=== PATIENT | female | born 1965 | race Hispanic/Latino ===

== ENCOUNTER 2020-04-10 12:17 | Emergency (ER) | payer OTHER, SELFPAY ==
--- OUTSIDE RECORDS SUMMARY | 2020-04-10 12:19 | XMS REPORT | Continuity of Care Document ---
:1965 Author Organization [facility] t Address [address] [place] [address] Care Team Providers Name Role Phone Ibeth Cavazos Attending Clinician Problems This patient has no known problems. Allergies, Adverse Reactions, Alerts This patient has no known allergies or adverse reactions. Medications This patient has no known medications. Procedures This patient has no known procedures. Encounters Start End Encounter Admission Attending Care Care Encounter Source Date/Time Date/Time Type Type Clinicians Facility Department ID 2019-12-29 2019-12-29 [facility] [id number] 06:29:04 23:59:00 Encounter Tamara Cristina SPECIALTY [id number] [facility] [id number] CENTER AT [id number] [facility] [address] [facility] 2019-11-30 2019-11-30 Office [facility] [id number] 15:59:53 16:57:30 Visit Tamara Cristina [employer]MP[employer] [id number] [facility] [id number] MATERNAL [id number] & CHILD [address] [place] [address] Results This patient has no known results.
[2020-04-10] MEDS ORDERED: dexAMETHasone 10 MG/ML VIAL ONE (13:12)
[2020-04-10] MEDS ORDERED: ACETAMINOPHEN 500 MG TAB ONE (13:12)
[2020-04-10] MEDS ORDERED: KETOROLAC 30 MG/ML INJ ONE (13:12)
--- NOTE | 2020-04-10 14:12 | RAD REPORT ---
EXAM DESCRIPTION: RAD - Chest Single View - 04/10/2020 1:58 pm CLINICAL HISTORY: Cough;Fever COMPARISON: Two-view chest April 2011 TECHNIQUE: AP portable chest image was obtained 04/10/2020 1:58 pm . FINDINGS: Lung volumes are low which accentuates heart, vasculature and lung markings. This could ma sk early edema or infiltrate. Heart and vasculature are normal. No measurable pleural effusion and no pneumothorax. No acute bony abnormality seen. No acute aortic findings suspected. IMPRESSION: No focal mass or consolidation. Shallow inspiration exam with prominent interstitial opacification. Early edema or infiltrate could b e masked.
--- NOTE | 2020-04-10 14:58 | ER ---
Nurse's Notes [facility] Name: Keisha Serna Age: 54 yrs Sex: Female : 1965 Arrival Date: 04/10/2020 Time: : Bed 15 Private MD: Diagnosis: Acute upper respiratory infection, unspecified Presentation: 04/10 12:36 Chief complaint: Patient states: Fever, sore throat, slight cough, SOB, fatigue, and ll1 body aches since 04/04. Family members have similar symptoms. Coronavirus screen: Client denies travel out of the [place] in the last 14 days. congestion, cough unrelated to allergies, difficulty breathing, fatigue, fever, nausea, shortness of breath, sore throat, vomiting. Client presents with at least one sign or symptom that may indicate coronavirus-19. Standard/surgical mask placed on the client. Ebola Screen: Patient denies travel to an Ebola-affected area in the 21 days before illness onset. Initial Sepsis Screen: Does the patient meet any 2 criteria? HR > 90 bpm. No. Patient's initial sepsis screen is negative. Does the patient have a suspected source of infection? Yes: Productive cough/pneumonia. Risk Assessment: Do you want to hurt yourself or someone else? Patient reports no desire to harm self or others. Onset of symptoms was April 04, 2020. 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 - Social history:: Smoking status: Patient denies any tobacco usage or history of. Screenin:23 Abuse screen: Denies threats or abuse. Denies injuries from another. Nutritional jl7 screening: No deficits noted. Tuberculosis screening: No symptoms or risk factors identified. Fall Risk None identified. Assessment: 13:00 General: Appears in no apparent distress. uncomfortable, Behavior is calm, cooperative, jl7 appropriate for age. Pain: Complains of pain in sore throat, VARNER Pain currently is 5 out of 10 on a pain scale. Neuro: Level of Consciousness is awake, alert, obeys commands, Oriented to person, place, time, situation, Moves all extremities. Full function Gait is steady, Speech is normal. Cardiovascular: Patient's skin is warm and dry. Respiratory: Airway is patent Respiratory effort is even, unlabored, Respiratory pattern is regular, symmetrical. Derm: Skin is pink, warm \T\ dry. 14:00 Reassessment: Patient appears in no apparent distress at this time. Patient and/or jl7 family updated on plan of care and expected duration. Pain level reassessed. Patient is alert, oriented x 3, equal unlabored respirations, skin warm/dry/pink. reports decreased pain, rated 3/10 at this time. Vital Signs: 12:36 BP 129 / 95; Pulse 93; Resp 18; Temp 101.1; Pulse Ox 97% on R/A; Weight 89.36 kg; ll1 Height 5 ft. 2 in. (157.48 cm); Pain 5/10; 14:23 BP 105 / 63; Pulse 80; Resp 19; Pulse Ox 98% ; Pain 3/10; jl7 14:25 Temp 99.8(O); jl7 15:18 BP 116 / 74; Pulse 75; Resp 15; Pulse Ox 97% ; jl7 12:36 Body Mass Index 36.03 (89.36 kg, 157.48 cm) ll1 ED Course: 12:22 Patient arrived in ED. rg4 12:35 Arm band placed on Patient placed in an exam room, on a stretcher. ll1 12:38 Triage completed. ll1 12:38 Brando Haile NP is PHCP. pm1 12:38 Lorne Jolly MD is Attending Physician. pm1 12:50 Noman Martin RN is Primary Nurse. jl7 13:30 COVID swab sent to lab. Flu and/or RSV swab sent to lab. Strep swab sent to lab. jl7 13:58 CXR XRAY In Process Unspecified. EDMS 14:23 Patient has correct armband on for positive identification. Placed in gown. Bed in low jl7 position. Call light in reach. Side rails up X 1. Pulse ox on. NIBP on. 15:18 No provider procedures requiring assistance completed. Patient did not have IV access jl7 during this emergency room visit. Administered Medications: 13:00 Drug: Tylenol 1000 mg Route: PO; jl7 14:24 Follow up: Response: No adverse reaction; Temperature is decreased jl7 13:05 Drug: TORadol 60 mg Route: IM; Site: right ventrogluteal; jl7 14:24 Follow up: Response: No adverse reaction; Pain is decreased jl7 13:07 Drug: Decadron 10 mg Route: IM; Site: right deltoid; jl7 14:25 Follow up: Response: No adverse reaction jl7 Outcome: 14:58 Discharge ordered by MD. pm1 15:18 Discharged to home ambulatory. jl7 15:18 Condition: stable 15:18 Discharge instructions given to patient, Instructed on discharge instructions, follow up and referral plans. medication usage, Demonstrated understanding of instructions, follow-up care, medications, Prescriptions given X 4. 15:19 Patient left the ED. jl7 Addendum: 04/12/2020 09:20 Addendum: COVID-19 Result: Positive result giiven to ED physician to notify pt. d m5 Physician: Ranjit Ross MD Physician attempted to contact pt. Physician left voice mail for pt to call the ED back. Signatures: Dispatcher [employer] EDMS Leah Mustafa RN RN dm5 Brando Haile NP MARINE MECHANIC pm1 Bonny Fall4 Noman Martin RN RN jl7 Alexis Ramos RN RN ll1
--- NOTE | 2020-04-10 14:58 | EDPHYS ---
Physician Documentation [facility] Name: Keisha Serna Age: 54 yrs Sex: Female : 1965 Arrival Date: 04/10/2020 Time: 12:22 Bed 15 Private MD: ED Physician Lorne Jolly HPI: 04/10 12:50 This 54 yrs old Female presents to ER via Ambulatory with complaints of Fever. pm1 12:50 The patient reports fever, not measured (subjective). Onset: The symptoms/episode pm1 began/occurred onset 7 days ago. Modifying factors: The patient has had contact with sick mother and father have concerns of COVID-19. Her mother has lass of taste and smell. The patient is having a cough, sore throat, subjective fever and chills, and chest pain with coughing and deep breathing. Associated signs and symptoms: Pertinent positives: chest pain, cough, diarrhea, sore throat, Pertinent negatives: abdominal pain, earache, headache, nausea, skin rash, shortness of breath, vomiting. Severity of symptoms: in the emergency department the symptoms are worse. The patient has not experienced similar symptoms in the past. The patient has not recently seen a physician, attempted to get covid screening outpatient but was unable to complete the forms online. LEGAL JOB TITLES: 15:19 LMP N/A - Post-menopause jl7 Historical: - Allergies: 12:36 No Known Allergies; ll1 - PMHx: 12:36 Hypertension; ll1 - PSHx: 12:36 None; ll1 - Immunization history:: Flu vaccine is not up to date. - Social history:: Smoking status: Patient denies any tobacco usage or history of. ROS: 12:50 Eyes: Negative for injury, pain, redness, and discharge, ENT: Negative for injury, pm1 pain, and discharge, Neck: Negative for injury, pain, and swelling. 12:50 Back: Negative for injury and pain, MS/Extremity: Negative for injury and deformity, Skin: Negative for injury, rash, and discoloration, Neuro: Negative for headache, weakness, numbness, tingling, and seizure. 12:50 Constitutional: Positive for chills, fever, Negative for poor PO intake. 12:50 Cardiovascular: Positive for chest pain, with cough, Negative for edema. 12:50 Respiratory: Positive for cough, Negative for shortness of breath. 12:50 Abdomen/GI: Positive for diarrhea, x2 for two days, Negative for abdominal pain, vomiting, abdominal cramps. Exam: 12:50 Constitutional: This is a well developed, well nourished patient who is awake, alert, pm1 and in no acute distress. Head/Face: Normocephalic, atraumatic. 12:50 Back: No spinal tenderness. No costovertebral tenderness. Full range of motion. Skin: Warm, dry with normal turgor. Normal color with no rashes, no lesions, and no evidence of cellulitis. MS/ Extremity: Pulses equal, no cyanosis. Neurovascular intact. Full, normal range of motion. 12:50 Cardiovascular: Exam negative for acute changes, Rate: normal, Rhythm: regular, Pulses: no pulse deficits are appreciated, Edema: is not appreciated. 12:50 Respiratory: Exam negative for acute changes, respiratory distress, shortness of breath, the patient does not display signs of respiratory distress. 12:50 Abdomen/GI: Inspection: abdomen appears normal, Palpation: abdomen is soft and non-tender, in all quadrants. 12:50 Neuro: Exam negative for acute changes, Orientation: is normal, Mentation: is normal, Motor: is normal, moves all fours. Vital Signs: 12:36 BP 129 / 95; Pulse 93; Resp 18; Temp 101.1; Pulse Ox 97% on R/A; Weight 89.36 kg; ll1 Height 5 ft. 2 in. (157.48 cm); Pain 5/10; 14:23 BP 105 / 63; Pulse 80; Resp 19; Pulse Ox 98% ; Pain 3/10; jl7 14:25 Temp 99.8(O); jl7 15:18 BP 116 / 74; Pulse 75; Resp 15; Pulse Ox 97% ; jl7 12:36 Body Mass Index 36.03 (89.36 kg, 157.48 cm) ll1 MDM: 12:41 Patient medically screened. pm1 14:57 Data reviewed: vital signs. Counseling: I had a detailed discussion with the patient pm1 and/or guardian regarding: the historical points, exam findings, and any diagnostic results supporting the discharge/admit diagnosis, lab results, radiology results, the need for outpatient follow up, to return to the emergency department if symptoms worsen or persist or if there are any questions or concerns that arise at home. 04/10 12:50 Order name: COVID-19 pm1 04/10 12:50 Order name: Flu; Complete Time: 14:42 pm1 04/10 12:50 Order name: CXR XRAY; Complete Time: 14:14 pm1 04/10 12:50 Order name: Strep; Complete Time: 14:18 pm1 04/10 14:19 Order name: Throat Culture EDMS 04/10 12:50 Order name: Droplet/Contact Precautions; Complete Time: 13:55 pm1 04/10 12:50 Order name: Labs collected and sent; Complete Time: 13:55 pm1 Administered Medications: 13:00 Drug: Tylenol 1000 mg Route: PO; jl7 14:24 Follow up: Response: No adverse reaction; Temperature is decreased jl7 13:05 Drug: TORadol 60 mg Route: IM; Site: right ventrogluteal; jl7 14:24 Follow up: Response: No adverse reaction; Pain is decreased jl7 13:07 Drug: Decadron 10 mg Route: IM; Site: right deltoid; jl7 14:25 Follow up: Response: No adverse reaction jl7 Disposition: 15:48 Co-signature as Attending Physician, Lorne Jolly MD. rn Disposition: 04/10/20 14:58 Discharged to Home. Impression: Acute upper respiratory infection, unspecified. - Condition is Stable. - Discharge Instructions: Upper Respiratory Infection, Adult, COVID-19. - Prescriptions for Zithromax Z- Josh 250 mg Oral Tablet - take 1 tablet by ORAL route as directed for 5 days Day 1 - take two (2) tablets one time. Day 2, 3, 4 , 5 take one (1) tablet once daily.; 6 tablet. Prednisone 20 mg Oral Tablet - take 1 tablet by ORAL route every 12 hours for 10 days; 20 tablet. Albuterol Sulfate 90 mcg/actuation - inhale 1-2 puff by INHALATION route every 4-6 hours; 1 Inhaler. Guaifenesin AC 10- 100 mg/5 mL Oral Liquid - take 10 milliliter by ORAL route every 4 hours As needed; 240 milliliter. - Medication Reconciliation Form, Thank You Letter, Antibiotic Education, Prescription Opioid Use form. - Follow up: Emergency Department; When: As needed; Reason: Worsening of condition. Follow up: Private Physician; When: 2 - 3 days; Reason: Recheck today's complaints, Continuance of care, Re-evaluation by your physician. - Problem is new. - Symptoms have improved. Signatures: Dispatcher [employer] EDMS Lorne Jolly MD MD rn Marinas, Patrick, PRESENTATION SPECIALIST PRESENTATION SPECIALIST pm1 Noman Martin RN RN jl7 Alexis Ramos RN RN ll1 Corrections: (The following items were deleted from the chart) 15:19 14:58 04/10/2020 14:58 Discharged to Home. Impression: Acute upper respiratory jl7 infection, unspecified. Condition is Stable. Forms are Medication Reconciliation Form, Thank You Letter, Antibiotic Education, Prescription Opioid Use. Follow up: Emergency Department; When: As needed; Reason: Worsening of condition. Follow up: Private Physician; When: 2 - 3 days; Reason: Recheck today's complaints, Continuance of care, Re-evaluation by your physician. Problem is new. Symptoms have improved. pm1 16:29 12:50 Associated signs and symptoms: Pertinent positives: chest pain, cough, sore pm1 throat, Pertinent negatives: abdominal pain, earache, headache, nausea, skin rash, shortness of breath, vomiting, pm1
[2020-04-10 15:26] VITALS: TEMP 99.8
[2020-04-10 15:27] VITALS: BP 116/74; O2SAT 97
== END 2020-04-10 15:19 | disposition home or self-care (01) ==
LOC: ER 12:17
DX: U07.1 COVID-19 (principal); J06.9 Acute upper respiratory infection, unspecified; I10 Essential (primary) hypertension
CPT/HCPCS: 71045; 87070; 87081; 87804; 96372; 99284; J1100; U0002

== ENCOUNTER 2024-08-11 16:07 | Emergency (ER) | payer SELFPAY ==
--- OUTSIDE RECORDS SUMMARY | 2024-08-11 16:17 | XMS REPORT | Continuity of Care Document ---
Author Name Unknown Address [address] [place] [address] [facility] Address [address] [place] [address] Care Team Providers Care Bit Tripoler Name Role Phone NATALIA RAO Primary Care Physician Unavailab JUANJO Hollis Attending Clinician UnavailJuanjo Yates Attending Clinician + [phone] Linnette Hill Attending Clinician +- [phone] LINNETTE HARMAN Attending Clinician Unavaila Douglas Hill Attending Clinician Unavailable LILA MARINO Attending Clinician UnaBRIGIDO Meza Attending Clinician Unavailable Brigido Tay Attending Clinician [phone] Doctor Unassigned, [place] Attending Clinician U Jimmy Sampson DO Attending Clinician [phone] Antwon Whittington DO Attending Clinician [phone] Syd Collins MD Attending Clinician [phone] SYD COLLINS Attending Clinician Unavailable STEPHANY BOLIVAR Attending Clinician Unavailable Provider, [facility] Attending Clinician Un available Stephany Treadwell Attending Clinician [phone] Tamara Cavazos Attending Clinician [phone] TAMARA RODRIGES Attending Clinician Unavailabl e SANDRA GENAO Attending Clinician Unavail able [place] WHSandra RUIZ Attending Clinician + KIAH LITTLE Attending Clinician Unavailable Res-Colpo/Leep, c-Rmchp Attending Clinician Un available Kiah Little Attending Clinician [phone] JUANJO VALDOVINOS Admitting Clinician Unavaila ble KNOW, DOES_NOT Admitting Clinician Unavailable BRIGIDO BUNCH Admitting Clinician Unavailable Karina SPENCER, Syd Admitting Clinician [phone] SYD COLLINS Admitting Clinician Unavailable Payers Payer Name Policy Type Policy Number Effective Date Expirati on Date Source Problems Condition Name Condition Details Condition Category Status Onset Date Resolution Date Last Treatment Date Treating Clinician Comments Source Pyelonephr itis Pyelonephr itis Disease Active 2 00:00: 00 [facility] Perimenopa usal Perimenopa usal Disease Active 11-30 00:00: 00 [facility] Essential hypertensi on Essential hypertensi on Disease Active 11-30 00:00: 00 [facility] ASCUS with positive high risk HPV cervical ASCUS with positive high risk HPV cervical Disease Active 11-19 00:00: 00 [facility] ASCUS with positive high risk HPV cervical ASCUS with positive high risk HPV cervical Disease Active 11-19 00:00: 00 [facility] Well woman exam Well woman exam Disease Active 09-25 00:00: 00 [facility] Obesity (BMI 30-39.9) Obesity (BMI 30-39.9) Disease Active 09-25 00:00: 00 [facility] Other depression Other depression Disease Active 09-25 00:00: 00 [facility] Well woman exam Well woman exam Disease Active 09-25 00:00: 00 [facility] Contracept kaylin management Contracept kaylin management Disease Active 09-25 00:00: 00 [facility] Allergies, Adverse Reactions, Alerts Allergy Name Allergy Type Status Severity Reaction(s) Onset Date Inactive Date Treating Clinician Comments Source No Known Allergie s DA Active U 10-25 00:00: 00 [facility] NO KNOWN ALLERGIE S Drug Class Active [facility] Social History Social Habit Start Date Stop Date Quantity Comments Source History SDOH Alcohol Std Drinks [facility] History SDOH Alcohol Binge [facility] History SDOH Alcohol Comment Roslyn o f [facility] Exposure to SARS-CoV-2 (event) 2022-06-22 00:00:00 2022-07-02 19:58:00 Not sure [facility] Alcohol intake 2022-07-02 00:00:00 2022-07-02 00:00:00 Lifetime non-drinker (finding) [facility] Tobacco use and exposure 2018-09-25 00:00:00 2018-09-25 00:00:00 Smokeless tobacco non-user [facility] History SDOH Alcohol Frequency 2018-09-25 00:00:00 2018-09-25 00:00:00 1 [facility] Sex Assigned At 1965 00:00:00 1965 00:00:00 [facility] Smoking Status Start Date Stop Date Source Never smoked tobacco [facility] Medications Ordered Medication Name Filled Medication Name Start Date Stop Date Current Medication? Ordering Clinician Indication Dosage Frequency Signature (SIG) Comments Components Source iopamidol (ISOVUE 370-500 mL) injection 70 mL 07-03 03:15: 00 07-03 03:15 :00 No [id number] 70mL 70 mL, Intravenou s, ONCE, 1 dose, On Fri07/02/22 at 2215, Routine [facility] dicyclomine (BENTYL) tablet 20 mg 07-03 03:00: 00 07-03 02:55 :00 No 20mg 20 mg, Oral, ONCE, 1 dose, On Fri07/02/22 at 2200, CHERRI [facility] maalox:diph enhydrAMINE :lidocaine 2 % viscous 1:1:1 (FIRST-MOUT HWASH BLM) oral suspension 15 mL 2021-04 00:30: 00 04-09 00:58 :00 No 15mL 15 mL, Oral, ONCE, 1 dose, On Fri04/08/22 at 1830, Routine [facility] lidocaine 2% viscous 2 % solution 2021-04 00:00: 00 Yes [id number] 15mL Take 15 mL by mouth every 4 (four) hours as needed for Oral mucosal pain. [facility] lidocaine 2 % mucosal jelly 2021-04 00:00: 00 Yes [id number] 1[in_us ] Apply 1 Inch to area(s) as needed for Pain (scale 7-10). [facility] traMADoL (ULTRAM) tablet 50 mg 07-19 04:15: 00 07-19 03:20 :00 No 50mg 50 mg, Oral, ONCE NOW, 1 dose, On Fri07/18/21 at 2315, Routine [facility] iopamidol (ISOVUE 370-500 mL) injection 100 mL 07-19 02:45: 00 07-19 01:40 :00 No [id number] 100mL 100 mL, Intravenou s, ONCE, 1 dose, On Fri07/18/21 at 2145, Routine [facility] ketorolac (TORADOL) injection 15 mg 07-19 02:00: 00 07-19 01:20 :00 No 15mg 15 mg, Slow IV Push, ONCE, 1 dose, On Fri07/18/21 at 2100, CHERRI
Fa culty member approving Restricted medication : BRIGIDO BUNCH [facility] traMADoL 50 mg tablet 07-18 00:00: 00 07-26 04:59 :00 No [id number] 50mg Take 1 tablet by mouth every 6 (six) hours as needed for Pain (scale 7-10) for up to 7 days. Indication s: acute pain [facility] amLODIPine 10 mg tablet 05-27 00:00: 00 Yes [id number] 10mg Take 1 tablet by mouth daily. [facility] pantoprazol e 40 mg EC tablet 05-27 00:00: 00 Yes [id number] 40mg Take 1 tablet by mouth daily. [facility] simethicone 80 mg chewable tablet 05-26 00:00: 00 Yes [id number] 80mg Take 1 tablet by mouth after meals and at bedtime. [facility] melatonin 3 mg tablet 05-26 00:00: 00 Yes [id number] 3mg Take 1 tablet by mouth at bedtime. [facility] ciprofloxac in HCl 500 mg tablet 05-26 00:00: 00 05-26 00:00 :00 No [id number] 500mg Take 1 tablet by mouth every 12 (twelve) hours for 3 days. [facility] pantoprazol e (PROTONIX) EC tablet 40 mg 05-25 23:30: 00 Yes 40mg 40 mg, Oral, DAILY, First dose on Fri05/25/20 at 1730, Until Discontinu ed, Routine [facility] ciprofloxac in HCl (CIPRO) tablet 500 mg 05-25 18:00: 00 Yes 500mg 500 mg, Oral, Q12H, First dose on Flores 05/25/20 at 1200, Until Discontinu ed, CHERRI
Re ason for Anti-Infec tive: Documented Infection< br>Documen khloe Infection Site: Blood
D uration of Therapy: 7 days [facility] simethicone (GAS RELIEF (SIMETHICON E)) chewable tablet 80 mg 05-25 03:00: 00 Yes 80mg 80 mg, Oral, PC+HS, First dose on Fri05/24/20 at 2100, Until Discontinu ed, Routine [facility] amLODIPine (NORVASC) tablet 10 mg 05-24 15:00: 00 Yes 10mg 10 mg, Oral, DAILY, First dose (after last modificati on) on Fri05/24/20 at 0900, Until Discontinu ed, [facility] mel[facility] (MELATIN) tablet 3 mg 05-24 07:00: 00 Yes 3mg 3 mg, Oral, QHS, First dose on Fri05/24/20 at 0100, Until Discontinu ed, Routine [facility] amLODIPine (NORVASC) tablet 5 mg 05-23 15:00: 00 05-24 12:21 :57 No 5mg 5 mg, Oral, DAILY, First dose on Fri05/23/20 at 0900, Until Discontinu ed, Routine [facility] cefTRIAXone (ROCEPHIN) 1,000 mg in NaCl 0.9% (NS) 50 mL MINI-BAG 05-23 13:00: 00 05-25 17:58 :03 No 1000mg 1,000 mg, IV Piggyback, Q24H ABX, First dose on Fri05/23/20 at 0700, Until Discontinu ed, 50 mL
Reas on for Anti-Infec tive: Empiric Therapy for Suspected Infection< br>Empiric Therapy Site: Urine
D uration of therapy: [address] [facility] clonazePAM (KLONOPIN) tablet 0.5 mg 05-23 07:12: 00 05-23 07:24 :00 No .5mg 0.5 mg, Oral, ONCE, 1 dose, Fri05/23/20 at 0115, Routine [facility] acetaminoph en (TYLENOL) tablet 650 mg 05-22 20:45: 43 Yes 650mg 650 mg, Oral, Q6HPRN, Starting Fri05/22/20 at 1445, Until Discontinu ed, Routine, Pain (scale 1-3) [facility] NaCl 0.9% (NS) bolus infusion 1,000 mL 05-22 18:15: 00 05-22 17:22 :00 No 1000mL at 999 mL/hr, 1,000 mL, IV Piggyback, ONCE, 1 dose, Fri05/22/20 at 1215, STAT [facility] cefTRIAXone (ROCEPHIN) 2,000 mg in NaCl 0.9% (NS) 100 mL MINI-BAG 05-22 18:15: 00 05-22 18:09 :00 No 2000mg 2,000 mg, IV Piggyback, ONCE, 1 dose, 05/22/20 at 1215, 100 mL
Reas on for Anti-Infec tive: Empiric Therapy for Suspected Infection< br>Empiric Therapy Site: Abdominal< br>Duratio n of therapy: 72 hours [facility] KCL (KLOR-CON M20) tablet 40 mEq 05-22 16:00: 00 05-22 17:03 :00 No 40meq 40 mEq, Oral, ONCE, 1 dose, Fri05/22/20 at 1000, CHERRI [facility] iohexol (OMNIPAQUE 350 BULK-150 mL) injection 120 mL 05-22 15:30: 00 05-22 15:12 :00 No 120mL 120 mL, Intravenou s, ONCE, 1 dose, Fri05/22/20 at 0930, Routine [facility] ondansetron (ZOFRAN) 4 mg tablet 05-16 00:00: 00 05-27 05:59 :00 No [id number] 4mg Take 1 tablet by mouth every 8 (eight) hours as needed for Nausea and Vomiting (N/V) for up to 10 days. [facility] clonazePAM 1 mg tablet 11-23 00:00: 00 Yes 1mg Take 1 mg by mouth 2 (two) times daily. [facility] gabapentin 100 mg capsule 11-23 00:00: 00 Yes TAKE 1 CAPSULE BY MOUTH THREE TIMES A DAY [facility] levothyroxi ne 50 mcg tablet 09-06 00:00: 00 Yes TAKE ONE (1) TABLET(S) BY MOUTH ONCE A DAY IN THE MORNING ON AN EMPTY STOMACH. [facility] multivitami n tablet 11-19 00:00: 11-19 04:59 :00 No [id number] 1{tbl} Take 1 tablet by mouth daily. [facility] ibuprofen 200 mg tablet 11-19 00:00: 00 11-23 04:59 :00 No [id number] 600mg Take 3 tablets by mouth every 6 (six) hours as needed for Pain (scale 4-6) for up to 3 days. [facility] traMADOL (ULTRAM) 50 mg tablet 08-21 00:00: 00 11-30 00:00 :00 No 50mg Take 1 tablet by mouth every 6 (six) hours as needed for Pain (scale 7-10). [facility] clindamycin (CLEOCIN) 300 mg capsule 08-21 00:00: 00 11-19 00:00 :00 No 300mg Take 1 capsule by mouth 3 (three) times daily. [facility] mupirocin (BACTROBAN OINT) 2 % ointment 08-21 00:00: 00 11-19 00:00 :00 No Apply to area(s) 3 (three) times daily. [facility] Vital Signs Vital Name Observation Time Observation Value Comments S ource Systolic blood pressure 2022-07-03 03:30:00 124 mm[Hg] [facility] Diastolic blood pressure 2022-07-03 03:30:00 71 mm[Hg] [facility] Heart rate 2022-07-03 03:30:00 80 /min [facility] Respiratory rate 2022-07-03 03:30:00 16 /min [facility] Oxygen saturation in Arterial blood by Pulse oximetry 2022-07-03 03:30:00 100 /min [facility] Body temperature 2022-07-03 00:58:00 37.5 Mar [facility] Body height 2022-07-03 00:58:00 157.5 cm [facility] Body weight 2022-07-03 00:58:00 71.215 kg [facility] BMI 2022-07-03 00:58:00 28.72 kg/m2 [facility] Systolic blood pressure 2022-04-08 23:46:00 175 mm[Hg] [facility] Diastolic blood pressure 2022-04-08 23:46:00 98 mm[Hg] [facility] Heart rate 2022-04-08 23:46:00 86 /min Un[facility] Body temperature 2022-04-08 23:46:00 37.28 Mar [facility] Respiratory rate 2022-04-08 23:46:00 18 /min [facility] Body height 2022-04-08 23:46:00 157.5 cm [facility] Body weight 2022-04-08 23:46:00 84.369 kg [facility] BMI 2022-04-08 23:46:00 34.02 kg/m2 [facility] Oxygen saturation in Arterial blood by Pulse oximetry 2022-04-08 23:46:00 100 /min [facility] Systolic blood pressure 2021-07-19 03:24:00 151 mm[Hg] [facility] Diastolic blood pressure 2021-07-19 03:24:00 89 mm[Hg] [facility] Heart rate 2021-07-19 03:24:00 85 /min [facility] Respiratory rate 2021-07-19 03:24:00 18 /min [facility] Oxygen saturation in Arterial blood by Pulse oximetry 2021-07-19 03:24:00 100 /min [facility] Body temperature 2021-07-19 01:00:00 37.22 Mar [facility] Body weight 2021-07-18 23:45:00 87.091 kg [facility] BMI 2021-07-18 23:45:00 35.12 kg/m2 [facility] Systolic blood pressure 2020-05-26 17:54:00 157 mm[Hg] [facility] Diastolic blood pressure 2020-05-26 17:54:00 100 mm[Hg] [facility] Heart rate 2020-05-26 17:54:00 97 /min [facility] Body temperature 2020-05-26 17:54:00 36.72 Mar [facility] Respiratory rate 2020-05-26 17:54:00 18 /min [facility] Oxygen saturation in Arterial blood by Pulse oximetry 2020-05-26 17:54:00 100 /min [facility] Body height 2020-05-22 20:40:00 157.5 cm Univ [facility] Body weight 2020-05-22 20:40:00 87.091 kg Univ [facility] BMI 2020-05-22 20:40:00 35.12 kg/m2 [facility] Systolic blood pressure 2020-05-16 15:24:00 131 mm[Hg] [facility] Diastolic blood pressure 2020-05-16 15:24:00 85 mm[Hg] [facility] Heart rate 2020-05-16 15:24:00 86 /min [facility] Body temperature 2020-05-16 15:24:00 36.83 Mar [facility] Respiratory rate 2020-05-16 15:24:00 14 /min [facility] Body height 2020-05-16 15:24:00 157.5 cm Univ [facility] Body weight 2020-05-16 15:24:00 89.359 kg Univ [facility] BMI 2020-05-16 15:24:00 36.03 kg/m2 [facility] Oxygen saturation in Arterial blood by Pulse oximetry 2020-05-16 15:24:00 97 /min [facility] Systolic blood pressure 2019-11-30 21:23:00 130 mm[Hg] [facility] Diastolic blood pressure 2019-11-30 21:23:00 91 mm[Hg] [facility] Heart rate 2019-11-30 21:22:00 87 /min [facility] Body temperature 2019-11-30 21:22:00 36.83 Mar [facility] Respiratory rate 2019-11-30 21:22:00 16 /min [facility] Body height 2019-11-30 21:22:00 157.5 cm [facility] Body weight 2019-11-30 21:22:00 88.451 kg [facility] BMI 2019-11-30 21:22:00 35.67 kg/m2 [facility] Systolic blood pressure 2019-11-30 21:23:00 130 mm[Hg] [facility] Diastolic blood pressure 2019-11-30 21:23:00 91 mm[Hg] [facility] Heart rate 2019-11-30 21:22:00 87 /min [facility] Body temperature 2019-11-30 21:22:00 36.83 Mar [facility] Respiratory rate 2019-11-30 21:22:00 16 /min [facility] Body height 2019-11-30 21:22:00 157.5 cm [facility] Body weight 2019-11-30 21:22:00 88.451 kg [facility] BMI 2019-11-30 21:22:00 35.67 kg/m2 [facility] Systolic blood pressure 2018-11-19 13:50:00 128 mm[Hg] [facility] Diastolic blood pressure 2018-11-19 13:50:00 89 mm[Hg] [facility] Heart rate 2018-11-19 13:50:00 80 /min [facility] Body temperature 2018-11-19 13:50:00 36.78 Mar [facility] Respiratory rate 2018-11-19 13:50:00 18 /min [facility] Body height 2018-11-19 13:50:00 157.5 cm [facility] Body weight 2018-11-19 13:50:00 82.186 kg [facility] BMI 2018-11-19 13:50:00 33.14 kg/m2 [facility] Procedures Procedure Date / Time Performed Performing Clinician Source CT ABDOMEN PELVIS W CONTRAST 2022-07-03 02:15:10 Bonifacio [facility] COMP. METABOLIC PANEL ([id number]) 2022-07-03 01:19:00 Bonifacio [facility] CBC WITH DIFF 2022-07-03 01:19:00 Bonifacio [facility] URINALYSIS 2022-07-03 01:19:00 [place], Christopher U [facility] CONSENT/REFUSAL FOR DIAGNOSIS AND TREATMENT 2022-07-03 00:36:54 Doctor Unassigned, [place] [facility] RAPID STREP SCREEN FOR GROUP A 2022-04-09 00:58:00 RamoneLinnette phoenix [facility] CONSENT/REFUSAL FOR DIAGNOSIS AND TREATMENT 2022-04-08 23:30:56 Doctor Unassigned, [place] [facility] CT ABDOMEN PELVIS W CONTRAST 2021-07-19 01:44:00 Brigido Bunch [facility] COMP. METABOLIC PANEL ([id number]) 2021-07-19 01:18:00 Brigido Bunch [facility] CBC WITH DIFF 2021-07-19 01:18:00 Brigido Bunch [facility] URINALYSIS 2021-07-19 01:18:00 Brigido Bunch [facility] CONSENT/REFUSAL FOR DIAGNOSIS AND TREATMENT 2021-07-18 23:40:57 Doctor Unassigned, [place] [facility] BASIC METABOLIC PANEL (NA, K, CL, CO2, GLUCOSE, BUN, CREATININE, CA) 2020-05-26 10:29:00 Cirilo [facility] CBC WITHOUT DIFF 2020-05-26 10:29:00 Cirilo [facility] CLOSTRIDIUM DIFFICILE TOXIN 2020-05-25 12:30:00 Cirilo [facility] BASIC METABOLIC PANEL (NA, K, CL, CO2, GLUCOSE, BUN, CREATININE, CA) 2020-05-25 12:23:00 Cirilo [facility] CBC WITHOUT DIFF 2020-05-25 12:23:00 Cirilo [facility] US RETROPERITONEAL COMPLETE 2020-05-24 21:20:38 Cirilo [facility] CBC WITHOUT DIFF 2020-05-24 12:37:00 Cirilo [facility] BASIC METABOLIC PANEL (NA, K, CL, CO2, GLUCOSE, BUN, CREATININE, CA) 2020-05-24 12:25:00 Cirilo [facility] FREE T4 2020-05-23 11:43:00 Brando Gresham [facility] THYROID STIMULATING HORMONE 2020-05-23 11:43:00 Brando Gresham [facility] BASIC METABOLIC PANEL (NA, K, CL, CO2, GLUCOSE, BUN, CREATININE, CA) 2020-05-23 11:43:00 Brando Gresham [facility] CBC WITH DIFF 2020-05-23 11:43:00 [facility]INE CULTURE 2020-05-23 00:03:00 Brando Gresham [facility] LACTATE DEHYDROGENASE 2020-05-22 22:36:00 Yuli Gresham ck [facility] PROTHROMBIN TIME / INR 2020-05-22 22:36:00 Brian Gresham icswathi [facility] BLOOD CULTURE SCREEN 2020-05-22 17:39:00 Blue Whittington [facility] BLOOD CULTURE SCREEN 2020-05-22 17:18:00 Blue Whittington [facility] LACTIC ACID WHOLE BLOOD 2020-05-22 17:18:00 Ana Whittington [facility] COVID-19 (ID NOW RAPID TESTING) 2020-05-22 17:18:00 Singer [facility] LAB ONLY COVID INTERPRETATION 2020-05-22 17:18:00 Singer [facility] CT ABDOMEN PELVIS W CONTRAST 2020-05-22 15:16:17 Singer [facility] LIPASE 2020-05-22 14:26:00 Antwon Whittington [facility] COMP. METABOLIC PANEL ([id number]) 2020-05-22 14:26:00 Antwon Whittington [facility] URINALYSIS 2020-05-22 14:26:00 [facility] CBC WITH DIFF 2020-05-22 14:25:00 Antwon Whittington [facility] NOTICE OF PRIVACY PRACTICES 2020-05-22 13:59:47 Doctor Unassigned, [place] [facility] AGREEMENTS AUTHORIZATIONS AND IRREVOCABLE ASSIGNMENTS (FORM 2000) 2020-05-22 06:01:00 Doctor Unassigned, [place] [facility] HOSPITAL ADMISSION 2020-05-22 06:01:00 Doctor Un assigned, [place] [facility] PAP SMEAR-LIQUID BASED-CP 2019-11-30 21:45:00 Tamara Rodriges [facility] ASSIGNMENT OF BENEFITS 2019-11-30 20:53:27 Docto r Unassigned, [place] [facility] POCT TEST 2018-11-19 13:54:00 Kiah Little [facility] Encounters Start Date/Time End Date/Time Encounter Type Admission Type Attending [facility] Care Facility Care Department Encounter ID Source 2021-02-10 22:23:23 Emergency [facility] [id number] [facility] 2022-07-02 20:02:00 2022-07-02 22:59:00 Emergency X BONIFACIO PATRICIAJAY [facility] ERT [id number] [facility] 2022-07-02 20:02:00 2022-07-02 22:59:00 Emergency Juanjo Valdovinos [facility] [id number] [facility] 2022-04-26 16:33:40 2022-04-26 16:33:40 Outpatient [facility] [id number] Nahun Hebert 2022-04-08 17:47:00 2022-04-08 20:13:00 Emergency Linnette Harman [facility] [id number] [facility] 2022-04-08 17:47:00 2022-04-08 20:13:00 Emergency X LINNETTE HARMAN [facility] ERT [id number] [facility] 2021-10-25 19:40:00 2021-10-26 00:12:00 Emergency EM Douglas Metzger [facility] [id number] [address] [place] [address] 2021-10-25 19:40:00 2021-10-26 00:12:00 Emergency EM Douglas [facility]zger [facility] [id number] [facility] 2021-09-20 19:27:00 2021-09-20 23:10:00 Emergency E LILA MARINO [facility] [address] 2021-07-18 18:47:00 2021-07-18 22:26:00 Emergency X BUNCH, BRIGIDO [facility] ERT [id number] [facility] 2021-07-18 18:47:00 2021-07-18 22:26:00 Emergency Brigido Bunch R [facility] [id number] [facility] 2021-07-18 00:00:00 2021-07-18 00:00:00 Orders Only Doctor Unassigned, [place] [facility] 1..114 [id number] [id number] [facility] 2021-06-09 14:00:00 2021-06-09 14:00:00 Outpatient R [facility] [id number] [facility] 2020-06-27 00:00:00 2020-06-27 00:00:00 Patient Outreach Jimmy Villa [facility] 1.84.114 [id number] [id number] [facility] 2020-05-22 08:01:00 2020-05-26 13:00:00 Hospital Encounter Antwon Whittington Sydantony Starkey [facility] 1..114 [id number] [id number] [facility] 2020-05-22 08:01:00 2020-05-26 13:00:00 Inpatient U SYD COLLINS [facility] [id number] [facility] 2020-05-22 00:00:00 2020-05-22 00:00:00 Orders Only Doctor Unassigned, [place] [facility] 1..114 [id number] 4.2.7.2.686 [id number] [facility] 2020-05-16 14:20:00 2020-05-16 14:20:00 Outpatient [facility]PH[facility] LAY[facility] [id number] [facility] 2020-05-16 09:14:54 2020-05-16 09:34:54 Urgent Care Provider, [employer] [facility] Formerly [facility] 1.84.114 350.1.13.10 4.2.7.2.686 [id number] [facility] 2020-05-16 09:20:00 2020-05-16 09:20:00 Outpatient STEPHANY LAYTON [facility] [id number] [facility] 2019-12-29 06:29:04 2019-12-29 23:59:00 Hospital Encounter Tamara Rodriges [facility] 1.840.114 350.1.13.10 4.2.7.2.686 [id number] 2019-12-29 06:29:04 2019-12-29 23:59:00 Hospital Encounter Tamara Rodriges [facility] 1.840.114 350.1.13.10 4.2.7.2.686 [id number] [facility] 2019-12-29 00:00:00 2019-12-29 00:00:00 Outpatient TAMARA QUINTANILLA [facility] [id number] [facility] 2019-11-30 16:00:00 2019-11-30 16:57:30 Outpatient TAMARA QUINTANILLA [facility] [id number] [facility] 2019-11-30 15:59:53 2019-11-30 16:57:30 Office Visit Tamara Rodriges [facility] 1.2.114 350.1.13.10 4.2.7.2.686 [id number] 2019-11-30 15:59:53 2019-11-30 16:57:30 Office Visit Paige Rodrigesily Ibeth [facility] 1.284.114 350.1.13.10 4.2.7.2.686 [id number] [facility] 2019-11-30 16:00:00 2019-11-30 16:00:00 Outpatient R TAMARA RODRIGES [facility] [id number] [facility] 2019-11-30 15:30:00 2019-11-30 15:30:00 Outpatient R TAMARA RODRIGES [facility] [id number] [facility] 2019-11-30 00:00:00 2019-11-30 00:00:00 Orders Only Doctor Unassigned, [place] [facility] 1..114 350.1.13.10 4.2.7.2.686 [id number] [facility] 2019-11-19 13:15:00 2019-11-19 13:15:00 Outpatient R TAMARA RODRIGES [facility] [id number] [facility] 2019-07-14 00:00:00 2019-07-14 00:00:00 Outpatient R SANDRA GENAO [facility] [id number] [facility] 2019-06-16 00:00:00 2019-06-16 00:00:00 Telephone Sandra Genao [facility] 1.284.114 350.1.13.10 4.2.7.2.686 [id number] [facility] 2018-11-23 00:00:00 2018-11-23 00:00:00 Patient Secure Msg Doctor Unassigned, [place] [facility] 1..840.114 350.1.13.10 4.2.7.2.686 [id number] [facility] 2018-11-19 08:30:00 2018-11-19 09:40:04 Outpatient R KIAH LITTLE [facility] [id number] [facility] 2018-11-19 08:12:47 2018-11-19 09:40:04 Office Visit Res-Colpo/L eep, c-Rmchp Kiah Little [facility] 1.840.114 350.1.13.10 4.2.7.2.686 [id number] [facility] 2018-09-25 15:45:00 2018-09-25 17:00:40 Outpatient R SANDRA GENAO [facility] [id number] [facility] Results Test Description Test Time Test Comments Results Result Co mments Source [facility] WITH [id number] 01:44:02* Test Item Value Reference Range Interpretation Comme nts WBC (test code = 6690-2) 7.44 See_Comment [Automated messa ge] The system which generated this result transmitted reference range: 4.30 - 11.10 10*3/?L. The reference range was not used to interpret this result as normal/abnormal. RBC (test code = 789-8) 3.65 See_Comment L [Automated messa ge] The system which generated this result transmitted reference range: 3.93 - 5.25 10*6/?L. The reference range was not used to interpret this result as normal/abnormal. HGB (test code = 718-7) 10.8 g/dL 11.6-15.0 L HCT (test code = 4544-3) 33.8 % 35.7-45.2 L MCV (test code = 787-2) 92.6 fL 80.6-95.5 MCH (test code = 785-6) 29.6 pg 25.9-32.8 MCHC (test code = 786-4) 32.0 g/dL 31.6-35.1 RDW-SD (test code = 81775-0) 43.0 fL 39.0-49.9 RDW-CV (test code = 788-0) 12.7 % 12.0-15.5 PLT (test code = 777-3) 279 See_Comment [Automated messa ge] The system which generated this result transmitted reference range: 166 - 358 10*3/?L. The reference range was not used to interpret this result as normal/abnormal. MPV (test code = 70856-5) 9.9 fL 9.5-12.9 NRBC/100 WBC (test code = 5567520100) 0.0 See_Comment [Automated [employer] ssage] The system which generated this result transmitted reference range: 0.0 - 10.0 /100 WBCs. The reference range was not used to interpret this result as normal/abnormal. NRBC x10^3 (test code = 5315894888) See_Comment [Automated messa ge] The system which generated this result transmitted reference range: 10*3/?L. The reference range was not used to interpret this result as normal/abnormal. GRAN MAT (NEUT) % (test code = 770-8) 53.8 % IMM GRAN % (test code = 9360102673) 0.40 % LYMPH % (test code = 736-9) 36.8 % MONO % (test code = 5905-5) 7.9 % EOS % (test code = 713-8) 0.7 % BASO % (test code = 706-2) 0.4 % GRAN MAT x10^3(ANC) (test code = 2791502841) 4.00 10*3/uL 1.88-7.09 IMM GRAN x10^3 (test code = 7845912240) 0.03 10*3/uL 0.00-0.06 LYMPH x10^3 (test code = 731-0) 2.74 10*3/uL 1.32-3.29 MONO x10^3 (test code = 742-7) 0.59 10*3/uL 0.33-0.92 EOS x10^3 (test code = 711-2) 0.05 10*3/uL 0.03-0.39 BASO x10^3 (test code = 704-7) 0.03 10*3/uL 0.01-0.07 Lab Interpretation (test code = 14139-8) Abnormal [facility] CT MAXIFAC W/[id number] 22:44:00 [facility] 1965 Sex: F FAX: Leilani Thomas [phone] [place]: St: REG Name: SHERYL VOGEL [facility] : 1965 Age/S: 56/F [address] Unit: [id number] Loc: [place] [address] Phys: Leilani Thomas KILN PULLER Acct: [id number] Dis Date: Status: REG ER PHONE #: [phone] Exam Date: 10/25/20212231 FAX #: [phone] Reason: UPPER LIP SWELLING/SORE-R/O ABSCESS EXAMS: CPT CODE: [id number] CT MAXIFAC W/CONTRAST 49557 EXAM: - CT MAXIFAC W/CONTRAST LOCATION: H61 CLINICAL HISTORY/INDICATION: UPPER LIP SWELLING/SORE-R/O ABSCESS COMPARISON: None TECHNIQUE: Axial CT images were obtained through the maxillofacial region after intravenous contrast administration. These were reviewed in both soft tissue and bone algorithms. C oronal and sagittal reformats were obtained from the axial data. This examination was performed according to our departmental dose optimization program, which includes automated exposure control, adjustment of the mA and/or kV according to patient size, and/or use of iterative reconstruction technique. FINDINGS: PARTIALLY IMAGED INTRACRANIAL STRUCTURES:No acute abnormality demonstrated. MASTOID AIR CELLS: Clear. ORBITS: Unremarkable. PARANASAL SINUSES: Clear. SOFT TISSUES: There is subcutaneousedema and fat stranding in the upper lip/anterior maxillary soft tissue. There is no evidence for abscess. PAROTID AND SUBMANDIBULAR GLANDS: The parotid and submandibular glands are normal in appearance. ADENOPATHY: No enlarged or pathologic appearing lymph nodes are seen. BONES: No fractures, dislocations, or aggressive osseous lesion. OTHER FINDINGS: There are multiple dental caries. There is periapical lucency with dehiscence of the buccal cortex of the root of the right 1st maxillary premolar. Periapical lucency with dehiscence of the buccal and lingual cortices of the root of the left 2nd maxillary premolar is also present. PAGE 1 Signed Report (CONTINUED) FAX: Leilani Thomas [phone] [place]: St: REG ------ Name: SHERYL VOGEL [facility] : 1965 Age/S: 56/F [address] Unit: [id number] Loc: [place] [address] Phys: Leilani Thomas KILN PULLER Acct: [id number] Dis Date: Status: REGER PHONE #: [phone] Exam Date: 10/25/20212231 FAX #: [phone] Reason: UPPER LIP SWELLING/SORE-R/O ABSCESS EXAMS: CPT CODE: [id number] CT MAXIFAC W/CONTRAST 66546 (Continued) IMPRESSION: 1. Dental caries with periapical disease involving the bilateral maxillary 1st premolars with adjacent cellulitis. No evidence of abscess. at 2244 Reported and signed by: Brunilda Frey MD CC: Leilani Thomas KILN PULLER Technologist: Marcela Le Trnscrd Dt/Tm: 10/25/2021 (0814) t.SDR.TH15 Orig Print D/T: S: 10/25/2021 (4017 PAGE 2 SignedReportCOMPREHENSIVE METABOLIC [id number] 21:48:00* Test Item Value Reference Range Interpretation Comme nts SODIUM (test code = NA) 136 mmol/L 137-145 L POTASSIUM (test code = K) TEST NOT PERFORMED mmol/L 3.4-5.0 N CHLORIDE (test code = CL) 102 mmol/L 98-107 N CARBON DIOXIDE (test code = CO2) 25 mmol/L 22-30 N ANION GAP (test code = GAP) 14 GLUCOSE (test code = GLU) 101 mg/dL 74-106 N BLOOD UREA NITROGEN (test code = BUN) 13 mg/dL 7-17 N GLOMERULAR FILTRATION RATE (test code = GFR) 79 >60 The estimated glomerular filtration rate is computed usingpatient race, age (>18), sex, and serum creatinine. If anyof the needed data elements are missing the Laboratory cannot compute an estimation of the glomerular filtration rate. CREATININE (test code = CREAT) 0.8 mg/dL 0.5-1.0 N TOTAL PROTEIN (test code = PROT) 7.8 g/dL 6.3-8.2 N "A positive bias may occur for patients taking Eltrombopag(a bone marrow stimulant used to treat thrombocytopenia andaplastic anemia)." ALBUMIN (test code = ALB) 4.4 g/dL 3.5-5.0 N CALCIUM (test code = CA) 8.5 mg/dL 8.4-10.2 N BILIRUBIN TOTAL (test code = BILT) 0.7 mg/dL 0.2-1.3 N "A positive b ias may occur for patients taking Eltrombopag(a bone marrow stimulant used to treat thrombocytopenia andaplastic anemia)." BILIRUBIN CONJUGATED (test code = BILCON) 0 mg/dL 0-0.3 N "A positive bias may occur for patients taking Eltrombopag(a bone marrow stimulant used to treat thrombocytopenia andaplastic anemia)." CONJUG ATED BILIRUBIN IS THE REPLACEMENT ASSAY FOR DIRECTBILIRUBIN. BILIRUBIN UNCONJUGATED (test code = BILUNC) 0.3 mg/dL 0-1.1 N SGOT/AST (test code = AST) 29 U/L 15-46 N SGPT/ALT (test code = ALT) 10 U/L 0-34 N ALKALINE PHOSPHATASE (test code = ALKP) 103 U/L 38-126 N INDEX HEMOLYSIS (test code = HEMINDEX) 143 Index/DL 0-100 H IS THE SAMPLE HEMOLYZED?:YESHEMOLYSI S GRADE:143"HEMOLYZED SPECIMEN MUST BE INTERPRETED WITH CAUTION SOMEOR ALL TEST RESULTS MAY BE INACCURATE."PLEASE CORRELATE CLINICALLY. CBC W/AUTO [id number] 21:38:00* Test Item Value Reference Range Interpretation Comme nts WHITE BLOOD CELL (test code = WBC) 11.2 x10 3/uL 5.0-12.0 N RED BLOOD CELL (test code = RBC) 3.74 x10 6/uL 4.20-5.40 L HEMOGLOBIN (test code = HGB) 10.9 g/dL 12.0-16.0 L HEMATOCRIT (test code = HCT) 33.1 % 36.0-46.0 L MEAN CELL VOLUME (test code = MCV) 89 fL 81-99 N MEAN CELL HGB (test code = MCH) 29.1 pg 27-31 N MEAN CELL HGB CONCENTRATION (test code = MCHC) 32.9 g/dL 33-37 L RED CELL DISTRIBUTION WIDTH (test code = RDW) 12.8 % 11.5-15.5 N PLATELET COUNT (test code = PLT) 270 x10 3/uL 130-400 N MEAN PLATELET VOLUME (test c ode = MPV) 10.4 fL 9.4-16.4 N NEUTROPHIL % (test code = NT%) 71.5 % 43-65 H IMMATURE GRANULOCYTE % (test code = IG%) 0.3 % 0.0-2.0 N LYMPHOCYTE % (test code = LY%) 19.7 % 20.5-45.5 L MONOCYTE % (test code = MO%) 8.1 % 5.5-11.7 N EOSINOPHIL % (test code = EO%) 0.3 % 0.9-2.9 L BASOPHIL % (test code = BA%) 0.1 % 0.2-1.0 L NUCLEATED RBC % (test code = NRBC%) 0.0 % 0-1.0 N NEUTROPHIL # (test code = NT#) 8.04 x10 3/uL 2.2-4.8 H IMMATURE GRANULOCYTE # (test code = IG#) 0.03 x10 3/uL 0-0.03 N LYMPHOCYTE # (test code = LY#) 2.21 x10 3/uL 1.3-2.9 N MONOCYTE # (test code = MO#) 0.91 x10 3/uL 0.3-0.8 H EOSINOPHIL # (test code = EO#) 0.03 x10 3/uL 0.0-0.2 N BASOPHIL # (test code = BA#) 0.01 x10 3/uL 0.0-0.1 N COMP. METABOLIC PANEL (93167)2021-07-19 01:58:22* Test Item Value Reference Range Interpretation Comme nts NA (test code = 8444454701) 140 mmol/L 135-145 K (test code = 4275011025) 4.1 mmol/L 3.5-5.0 CL (test code = 4202871853) 109 mmol/L 98-108 H CO2 TOTAL (test code = 8860674278) 21 mmol/L 23-31 L AGAP (test code = 5052708149) 2-16 BUN (test code = 8373694964) 13 mg/dL 7-23 GLUCOSE (test code = 8615983257) 94 mg/dL 70-110 CREATININE (test code = 8484427771) 0.88 mg/dL 0.50-1.04 TOTAL BILI (test code = 7528441190) 0.5 mg/dL 0.1-1.1 CALCIUM (test code = 4141220806) 8.6 mg/dL 8.6-10.6 T PROTEIN (test code = 9171910191) 7.3 g/dL 6.3-8.2 ALBUMIN (test code = 5599376251) 4.6 g/dL 3.5-5.0 ALK PHOS (test code = 2928601798) 85 U/L 34-122 ALTv (test code = 1742-6) 12 U/L 5-35 AST(SGOT) (test code = 8306152874) 27 U/L 13-40 eGFR (test code = 6920817673) mL/min/1.73m2 BUNNY (test code = BUNNY) Association of Glomerular Filtration Rate (GFR) and Staging of Kidney Disease* + --+ --+ ------+| GFR (mL/min/1.73 m2) ?| With Kidney Damage ?| ?Without Kidney Damage+ --------+ --------+ +| ?>90 ?| ?Stage one ?| ? Normal ?+ ---+ ---+ -------+| ?60-89 ?| ?Stage two ?| ? Decreased GFR ? + --+ --+ ------+| ?30-59 ?| ?Stage three ?| ? Stage three ? + --+ --+ ------+| ?15-29 ?| ?Stage four ? | ? Stage four ?+ ---+ ---+ -------+| ?<15 (or dialysis) ? ?| ?Stage five ? | ? Stage five ?+ ---+ ---+ -------+ *Each stage assumes the associated GFR level has been in effect for at least three months. ?Stages 1 to 5, with or without kidney disease, indicate chronic kidney disease. Notes: Determination of stages one and two (with eGFR >59mL/min/1.73 m2) requires estimation of kidney damage for at least three months as defined by structural or functional abnormalities of the kidney, manifested by either:Pathological abnormalities or Markers of kidney damage (including abnormalities in the composition of the blood or urine or abnormalities in imaging tests). Lab Interpretation (test code = 73397-0) Abnormal [facility] WITH [id number] 01:46:19* Test Item Value Reference Range Interpretation Comme nts WBC (test code = 6690-2) See_Comment [Automated [employer]] The system which generated this result transmitted reference range: 4.30 - 11.10 10*3/?L. The reference range was not used to interpret this result as normal/abnormal. RBC (test code = 789-8) See_Comment L [Automated [employer]] The system which generated this result transmitted reference range: 3.93 - 5.25 10*6/?L. The reference range was not used to interpret this result as normal/abnormal. HGB (test code = 718-7) 10.3 g/dL 11.6-15.0 L HCT (test code = 4544-3) 32.5 % 35.7-45.2 L MCV (test code = 787-2) 92.1 fL 80.6-95.5 MCH (test code = 785-6) 29.2 pg 25.9-32.8 MCHC (test code = 786-4) 31.7 g/dL 31.6-35.1 RDW-SD (test code = 14854-1) 45.1 fL 39.0-49.9 RDW-CV (test code = 788-0) 13.4 % 12.0-15.5 PLT (test code = 777-3) See_Comment [Automated [employer]] The system which generated this result transmitted reference range: 166 - 358 10*3/?L. The reference range was not used to interpret this result as normal/abnormal. MPV (test code = 23904-0) 10.2 fL 9.5-12.9 NRBC/100 WBC (test code = 0582396720) See_Comment [Automated me ssage] The system which generated this result transmitted reference range: 0.0 - 10.0 /100 WBCs. The reference range was not used to interpret this result as normal/abnormal. NRBC x10^3 (test code = 2545506656) <0.01 See_Comment [Automated messa ge] The system which generated this result transmitted reference range: 10*3/?L. The reference range was not used to interpret this result as normal/abnormal. GRAN MAT (NEUT) % (test code = 770-8) 53.3 % IMM GRAN % (test code = 3527091061) 0.40 % LYMPH % (test code = 736-9) 37.4 % MONO % (test code = 5905-5) 7.6 % EOS % (test code = 713-8) 1.0 % BASO % (test code = 706-2) 0.3 % GRAN MAT x10^3(ANC) (test code = 4120797023) 4.21 10*3/uL 1.88-7.09 IMM GRAN x10^3 (test code = 9329365704) 0.03 10*3/uL 0.00-0.06 LYMPH x10^3 (test code = 731-0) 2.95 10*3/uL 1.32-3.29 MONO x10^3 (test code = 742-7) 0.60 10*3/uL 0.33-0.92 EOS x10^3 (test code = 711-2) 0.08 10*3/uL 0.03-0.39 BASO x10^3 (test code = 704-7) <0.03 0.01-0.07 Lab Interpretation (test code = 90371-6) Abnormal [facility] METABOLIC PANEL (NA, K, CL, CO2, GLUCOSE, BUN, CREATININE, CA)2020-05-26 11:55:00* Test Item Value Reference Range Interpretation Comme nts NA (test code = 6258356230) 140 mmol/L 135-145 K (test code = 5283815596) 3.6 mmol/L 3.5-5 CL (test code = 0554751516) 108 mmol/L 98-108 CO2 TOTAL (test code = 7370747761) 22 mmol/L 23-31 L AGAP (test code = 4476641918) 2-16 BUN (test code = 4607261425) 16 mg/dL 7-23 GLUCOSE (test code = 5282288317) 99 mg/dL 70-110 CREATININE (test code = 0663183471) 0.89 mg/dL 0.5-1.04 CALCIUM (test code = 4614461784) 9.3 mg/dL 8.6-10.6 eGFR Calculation (Non-) (test code = 0107642030) mL/min/1.73m2 eGFR Calculation () (test code = 4138337319) mL/min/1.73m2 BUNNY (test code = BUNNY) Association of Glomerular Filtration Rate (GFR) and Staging of Kidney Disease* + --+ --+ ------+| GFR (mL/min/1.73 m2) ?| With Kidney Damage ?| ?Without Kidney Damage+ --------+ --------+ +| ?>90 ?| ?Stage one ?| ? Normal ?+ ---+ ---+ -------+| ?60-89 ?| ?Stage two ?| ? Decreased GFR ? + --+ --+ ------+| ?30-59 ?| ?Stage three ?| ? Stage three ? + --+ --+ ------+| ?15-29 ?| ?Stage four ? | ? Stage four ?+ ---+ ---+ -------+| ?<15 (or dialysis) ? ?| ?Stage five ? | ? Stage five ?+ ---+ ---+ -------+ *Each stage assumes the associated GFR level has been in effect for at least three months. ?Stages 1 to 5, with or without kidney disease, indicate chronic kidney disease. Notes: Determination of stages one and two (with eGFR >59mL/min/1.73 m2) requires estimation of kidney damage for at least three months as defined by structural or functional abnormalities of the kidney, manifested by either:Pathological abnormalities or Markers of kidney damage (including abnormalities in the composition of the blood or urine or abnormalities in imaging tests). Lab Interpretation (test code = 37573-8) Abnormal [facility] WITHOUT [id number] 11:06:00* Test Item Value Reference Range Interpretation Comme nts WBC (test code = 6690-2) See_Comment [Automated message] The system which generated this result transmitted reference range: 4.30 - 11.10 10*3/?L. The reference range was not used to interpret this result as normal/abnormal. RBC (test code = 789-8) See_Comment L [Automated message] The system which generated this result transmitted reference range: 3.93 - 5.25 10*6/?L. The reference range was not used to interpret this result as normal/abnormal. HGB (test code = 718-7) 9.0 g/dL 11.6-15 L HCT (test code = 4544-3) 28.3 % 35.7-45.2 L MCH (test code = 785-6) 28.5 pg 25.9-32.8 MCV (test code = 787-2) 89.6 fL 80.6-95.5 MCHC (test code = 786-4) 31.8 g/dL 31.6-35.1 PLT (test code = 777-3) See_Comment H [Automated message] The system which generated this result transmitted reference range: 166 - 358 10*3/?L. The reference range was not used to interpret this result as normal/abnormal. MPV (test code = 33829-3) 9.2 fL 9.5-12.9 L RDW-CV (test code = 788-0) 15.9 % 12-15.5 H RDW-SD (test code = 55081-7) 51.7 fL 39-49.9 H NRBC x10^3 (test code = 7666073764) <0.01 See_Comment [Automated messa ge] The system which generated this result transmitted reference range: 10*3/?L. The reference range was not used to interpret this result as normal/abnormal. NRBC/100 WBC (test code = 6904540658) See_Comment [Automated messa ge] The system which generated this result transmitted reference range: 0.0 - 10.0 /100 WBCs. The reference range was not used to interpret this result as normal/abnormal. IPF % (test code = 3120346544) Lab Interpretation (test code = 43854-0) [facility] [id number] 18:45:00 * Test Item Value Reference Range Interpretation Comme nts Clostridioides (Clostridium) difficile (test code = 75286-6) Negative Negative Lab Interpretation (test cod e = 59693-6) Normal [facility] [id number] 16:29:25 1. ?Bilateral poor corticomedullary differentiation, non-specific, howevercould be seen with pyelonephritis.2. ?Right lower and right mid kidney stones measuring 0.8 and 0.9 cm,respectively.3. ?Traceto mild right hydronephrosis.4. ?A 1.5 cm left lower renal septated cyst . Preliminary Report Dictated by Resident: Isaiah Logan MD., have reviewed this study and agree with theabove report.EXAM: US RETROPERITONEAL COMPLETE HISTORY: 55 years-old female with pyelonephritis . TECHNIQUE: ?Ultrasound of kidneys and bladder was performed with grayscaleand selected color Doppler imaging. Back End Web Developer images were obtained forthe record. COMPARISON: CTAP 05/22/2020 FINDINGS: KIDNEYS:RIGHT:Size: Normal, 5.1 x 5.8x 11.5 cm.Parenchyma: Poor corticomedullary differentiation.No focal solid or cysticrenal lesions are detected. Echogenic foci with twinkle artifact are located in the right lower andright mid calyces, and measure 0.8 and 0.9 cm respectively, consistent leftki dney stones correlating with CT findings. Collecting System: Trace to mild hydronephrosis. LEFT:Size: Normal, 5.4 x 4.9x 10.3 cm.Parenchyma: Poor corticomedullary differentiation. No focal solid renallesions are detected. A lower pole renal septated cyst is seen and measures1.3 x 1.5 x 1.4 cmCollecting System: No hydronephrosis. Bladder: Bladder is distended and unremarkable. [facility], Radiant Results Inft User - 05/25/2020 10:30 AM CSTEXAM: US RETROPERITONEAL COMPLETEHISTORY: 55 years-old female with pyelonephritis .TECHNIQUE: Ultrasound of kidneys and bladder was performed with grayscaleand selected color Doppler imaging. Back End Web Developer images were obtained forthe record.COMPARISON: CTAP 05/22/2020FINDINGS: KIDNEYS:RIGHT:Size: Normal, 5.1 x 5.8x 11.5 cm.Parenchyma: Poor corticomedullary differentiation. No focal solid or cysticrenal lesions are detected. Echogenic foci with twinkle artifactare located in the right lower andright mid calyces, and measure 0.8 and 0.9 cm respectively, consistent leftkidney stones correlating with CT findings. Collecting System: Trace to mild hydronephrosis.LEFT:Size: Normal, 5.4 x 4.9x 10.3 cm.Parenchyma: Poor corticomedullary differentiation. No focal solid renallesions are detected. A lower pole renal septated cyst is seen and measures1.3 x 1.5 x 1.4 cmCollecting System: No hydronephrosis.Bladder: Bladder is distended and unremarkable.IMPRESSION1.Bilateral poor corticomedullary differentiation, non- specific, howevercould be seen with pyelonephritis.2. Right lower and right mid kidney stones measuring 0.8 and 0.9 cm,respectively.3. Trace to mild right hydronephrosis.4. A 1.5 cm left lower renal septated cyst .Preliminary Report Dictated by Resident: Samara Samson, Isaiah Dominguez MD., have reviewed this study and agree with theabove report.[facility] METABOLIC PANEL (NA, K, CL, CO2, GLUCOSE, BUN, CREATININE, CA) 2020-05-25 13:18:00* Test Item Value Reference Range Interpretation Comme nts NA (test code = 0957399746) 141 mmol/L 135-145 K (test code = 3168038619) 3.8 mmol/L 3.5-5 CL (test code = 1309821886) 107 mmol/L 98-108 CO2 TOTAL (test code = 0230982296) 24 mmol/L 23-31 AGAP (test code = 1035925863) 2-16 BUN (test code = 5327195650) 11 mg/dL 7-23 GLUCOSE (test code = 0305331680) 103 mg/dL 70-110 CREATININE (test code = 3491357006) 0.85 mg/dL 0.5-1.04 CALCIUM (test code = 4411486568) 9.4 mg/dL 8.6-10.6 eGFR Calculation (Non-) (test code = 5508560948) mL/min/1.73m2 eGFR Calculation () (test code = 3643048112) mL/min/1.73m2 BUNNY (test code = BUNNY) Association of Glomerular Filtration Rate (GFR) and Staging of Kidney Disease* + -+ + ---+| GFR (mL/min/1.73 m2) ?| With Kidney Damage ?| ?Without Kidney Damage+ -------+ ------+ ---------+| ?>90 ?| ?Stage one ?| ? Normal ?+ --+ -+ ----+| ?60-89 ?| ?Stage two ?| ? Decreased GFR ? + -+ + ---+| ?30-59 ?| ?Stage three ?| ? Stage three ? + -+ + ---+| ?15-29 ?| ?Stage four ? | ? Stage four ?+ --+ -+ ----+| ?<15 (or dialysis) ? ?| ?Stage five ? | ? Stage five ?+ --+ -+ ----+ *Each stage assumes the associated GFR level has been in effect for at least three months. ?Stages 1 to 5, with or without kidney disease, indicate chronic kidney disease. Notes: Determination of stages one and two (with eGFR >59mL/min/1.73 m2) requires estimation of kidney damage for at least three months as defined by structural or functional abnormalities of the kidney, manifested by either:Pathological abnormalities or Markers of kidney damage (including abnormalities in the composition of the blood or urine or abnormalities in imaging tests). [facility] WITHOUT [id number] 12:47:00* Test Item Value Reference Range Interpretation Comme nts WBC (test code = 6690-2) See_Comment [Automated message] The system which generated this result transmitted reference range: 4.30 - 11.10 10*3/?L. The reference range was not used to interpret this result as normal/abnormal. RBC (test code = 789-8) See_Comment L [Automated message] The system which generated this result transmitted reference range: 3.93 - 5.25 10*6/?L. The reference range was not used to interpret this result as normal/abnormal. HGB (test code = 718-7) 9.5 g/dL 11.6-15 L HCT (test code = 4544-3) 28.9 % 35.7-45.2 L MCH (test code = 785-6) 29.1 pg 25.9-32.8 MCV (test code = 787-2) 88.7 fL 80.6-95.5 MCHC (test code = 786-4) 32.9 g/dL 31.6-35.1 PLT (test code = 777-3) See_Comment H [Automated message] The system which generated this result transmitted reference range: 166 - 358 10*3/?L. The reference range was not used to interpret this result as normal/abnormal. MPV (test code = 95386-7) 9.3 fL 9.5-12.9 L RDW-CV (test code = 788-0) 15.7 % 12-15.5 H RDW-SD (test code = 61899-2) 51.4 fL 39-49.9 H NRBC x10^3 (test code = 0698626885) <0.01 See_Comment [Automated messa ge] The system which generated this result transmitted reference range: 10*3/?L. The reference range was not used to interpret this result as normal/abnormal. NRBC/100 WBC (test code = 4825097798) See_Comment [Automated messa ge] The system which generated this result transmitted reference range: 0.0 - 10.0 /100 WBCs. The reference range was not used to interpret this result as normal/abnormal. IPF % (test code = 9293213454) Lab Interpretation (test code = 92036-4) Abnormal [facility] METABOLIC PANEL (NA, K, CL, CO2, GLUCOSE, BUN, CREATININE, CA)2020-05-24 13:15:00* Test Item Value Reference Range Interpretation Comme nts NA (test code = 3871401296) 142 mmol/L 135-145 K (test code = 1894419262) 3.5 mmol/L 3.5-5 CL (test code = 4776628102) 108 mmol/L 98-108 CO2 TOTAL (test code = 5797490539) 24 mmol/L 23-31 AGAP (test code = 5984391387) 2-16 BUN (test code = 1693954208) 11 mg/dL 7-23 GLUCOSE (test code = 9017462238) 112 mg/dL 70-110 H CREATININE (test code = 4509988297) 0.89 mg/dL 0.5-1.04 CALCIUM (test code = 4589342420) 9.2 mg/dL 8.6-10.6 eGFR Calculation (Non-) (test code = 8014600574) mL/min/1.73m2 eGFR Calculation () (test code = 8086169954) mL/min/1.73m2 BUNNY (test code = BUNNY) Association of Glomerular Filtration Rate (GFR) and Staging of Kidney Disease* + --+ --+ ------+| GFR (mL/min/1.73 m2) ?| With Kidney Damage ?| ?Without Kidney Damage+ --------+ --------+ +| ?>90 ?| ?Stage one ?| ? Normal ?+ ---+ ---+ -------+| ?60-89 ?| ?Stage two ?| ? Decreased GFR ? + --+ --+ ------+| ?30-59 ?| ?Stage three ?| ? Stage three ? + --+ --+ ------+| ?15-29 ?| ?Stage four ? | ? Stage four ?+ ---+ ---+ -------+| ?<15 (or dialysis) ? ?| ?Stage five ? | ? Stage five ?+ ---+ ---+ -------+ *Each stage assumes the associated GFR level has been in effect for at least three months. ?Stages 1 to 5, with or without kidney disease, indicate chronic kidney disease. Notes: Determination of stages one and two (with eGFR >59mL/min/1.73 m2) requires estimation of kidney damage for at least three months as defined by structural or functional abnormalities of the kidney, manifested by either:Pathological abnormalities or Markers of kidney damage (including abnormalities in the composition of the blood or urine or abnormalities in imaging tests). Lab Interpretation (test code = 74621-5) Abnormal [facility] WITHOUT [id number] 12:52:00* Test Item Value Reference Range Interpretation Comme nts WBC (test code = 6690-2) See_Comment [Automated message] The system which generated this result transmitted reference range: 4.30 - 11.10 10*3/?L. The reference range was not used to interpret this result as normal/abnormal. RBC (test code = 789-8) See_Comment L [Automated message] The system which generated this result transmitted reference range: 3.93 - 5.25 10*6/?L. The reference range was not used to interpret this result as normal/abnormal. HGB (test code = 718-7) 8.8 g/dL 11.6-15 L HCT (test code = 4544-3) 27.2 % 35.7-45.2 L MCH (test code = 785-6) 28.8 pg 25.9-32.8 MCV (test code = 787-2) 88.9 fL 80.6-95.5 MCHC (test code = 786-4) 32.4 g/dL 31.6-35.1 PLT (test code = 777-3) See_Comment H [Automated message] The system which generated this result transmitted reference range: 166 - 358 10*3/?L. The reference range was not used to interpret this result as normal/abnormal. MPV (test code = 21681-7) 9.2 fL 9.5-12.9 L RDW-CV (test code = 788-0) 15.7 % 12-15.5 H RDW-SD (test code = 08959-4) 51.2 fL 39-49.9 H NRBC x10^3 (test code = 2817557520) <0.01 See_Comment [Automated messa ge] The system which generated this result transmitted reference range: 10*3/?L. The reference range was not used to interpret this result as normal/abnormal. NRBC/100 WBC (test code = 2537636007) See_Comment [Automated messa ge] The system which generated this result transmitted reference range: 0.0 - 10.0 /100 WBCs. The reference range was not used to interpret this result as normal/abnormal. IPF % (test code = 0074002403) Lab Interpretation (test code = 02138-3) [facility] [id number] 22:41:00COVID DMT InterpretationInterpretation/Recommendations: Molecular NAAT Tests for Active Infection with the SARS-CoV-2 Virus: This patient has tested negative on two occasions for the SARS-CoV-2 virusthat causes COVID-19 illness. This most likely indicates that the patient does not have an active infection with the SARS-CoV-2 virus, especially if these tests coincide with the patient's current presentation. However, infection is not completely ruled out as the false negative rate for molecular NAAT testing using a nasopharyngeal sample can be up to 30%, mostly dependent on the timing of sample collection in relation to illness onset and any deficiencies in sampling techniques. If the patient has symptoms concerning for COVID-19 illness, a repeat NAAT test (PCR, Rapid ID Now, etc.) should be performed, at which time the SARS-CoV-2 virus - if present - may have reached a detectable viral load (usually peaking by the end of the first week of symptoms). Tests for IgM and/or IgG Antibodiesto SARS-CoV-2 Virus: Testing for IgM and IgG antibodies 1-3 weeks after illness onset will indicate whether the patient has produced antibodies to the virus. At this time, it is not known if the production of antibodies - specifically IgG antibodies - indicates whether the patient is immune to future infections with the SARS-CoV-2 virus. Interpretation Result Comments:These interpretation comments are based upon all COVID-19 testing the patient has had at [facility], including molecular NAAT testing (more commonly known as PCRtesting and Rapid ID Now testing) and antibody testing. It does not take into account any testing that a patient has had outside of the [facility] medical record. [facility] LABORATORY SERVICESCOVID ResultsSARS-C oV-2 NAAT (no units) ? ? Date ? Value ? 05/16/2020 ? Not Detected ? SARS-CoV-2 Rapid ID NOW (no units) ? ? Date ? Value ? 05/22/2020 ? Not Detected ? [facility] URINE [id number] 17:01:00* Test Item Value Reference Range Interpretation Comme nts URINE CULTURE (test code = 630-4) No aerobic growth (< 1000 CFU/mL) [facility] CenterTHY[facility]ID STIMULATING [id number] 13:19:00 * Test Item Value Reference Range Interpretation Comme nts TSH (test code = 4494831589) See_Comment [Automated messa ge] The system which generated this result transmitted reference range: 0.45 - 4.70 mIU/L. The reference range was not used to interpret this result as normal/abnormal. Lab Interpretation (test code = 21901-5) Normal [facility] CenterFREE [id number] 13:05:00* Test Item Value Reference Range Interpretation Comme nts FREE T4 (test code = 8192749962) See_Comment [Automated messa ge] The system which generated this result transmitted reference range: 0.78 - 2.20 ng/dL:. The reference range was not used to interpret this result as normal/abnormal. Lab Interpretation (test code = 68261-5) Normal [facility] CenterCB WITH [id number] 12:48:00* Test Item Value Reference Range Interpretation Comme nts WBC (test code = 6690-2) See_Comment H [Automated message] The system which generated this result transmitted reference range: 4.30 - 11.10 10*3/?L. The reference range was not used to interpret this result as normal/abnormal. RBC (test code = 789-8) See_Comment L [Automated message] The system which generated this result transmitted reference range: 3.93 - 5.25 10*6/?L. The reference range was not used to interpret this result as normal/abnormal. HGB (test code = 718-7) 8.2 g/dL 11.6-15 L HCT (test code = 4544-3) 24.7 % 35.7-45.2 L MCV (test code = 787-2) 86.4 fL 80.6-95.5 MCH (test code = 785-6) 28.7 pg 25.9-32.8 MCHC (test code = 786-4) 33.2 g/dL 31.6-35.1 RDW-SD (test code = 88627-8) 49.8 fL 39-49.9 RDW-CV (test code = 788-0) 15.8 % 12-15.5 H PLT (test code = 777-3) See_Comment H [Automated message] The system which generated this result transmitted reference range: 166 - 358 10*3/?L. The reference range was not used to interpret this result as normal/abnormal. MPV (test code = 13696-7) 9.0 fL 9.5-12.9 L NRBC/100 WBC (test code = 5848436638) See_Comment [Automated message] The system which generated this result transmitted reference range: 0.0 - 10.0 /100 WBCs. The reference range was not used to interpret this result as normal/abnormal. NRBC x10^3 (test code = 5019948757) <0.01 See_Comment [Automated message] The system which generated this result transmitted reference range: 10*3/?L. The reference range was not used to interpret this result as normal/abnormal. GRAN MAT (NEUT) % (test code = 770-8) 68.2 % IMM GRAN % (test code = 0077251241) 3.30 % LYMPH % (test code = 736-9) 20.3 % MONO % (test code = 5905-5) 7.6 % EOS % (test code = 713-8) 0.4 % BASO % (test code = 706-2) 0.2 % GRAN MAT x10^3(ANC) (test code = 9113029358) 10.36 10*3/uL 1.88-7.09 H IMM GRAN x10^3 (test code = 0834170941) 0.50 10*3/uL 0-0.06 H LYMPH x10^3 (test code = 731-0) 3.09 10*3/uL 1.32-3.29 MONO x10^3 (test code = 742-7) 1.16 10*3/uL 0.33-0.92 H EOS x10^3 (test code = 711-2) 0.06 10*3/uL 0.03-0.39 BASO x10^3 (test code = 704-7) 0.03 10*3/uL 0.01-0.07 TOXIC CHANGES (test code = 803-7) Present A Lab Interpretation (test code = 99724-1) Abnormal [facility] METABOLIC PANEL (NA, K, CL, CO2, GLUCOSE, BUN, CREATININE, CA)2020-05-23 12:46:00* Test Item Value Reference Range Interpretation Comme nts NA (test code = 1084944580) 139 mmol/L 135-145 K (test code = 0311690307) 3.8 mmol/L 3.5-5 CL (test code = 9008636953) 107 mmol/L 98-108 CO2 TOTAL (test code = 9384255293) 23 mmol/L 23-31 AGAP (test code = 8891760413) 2-16 BUN (test code = 3547275347) 11 mg/dL 7-23 GLUCOSE (test code = 2273140753) 95 mg/dL 70-110 CREATININE (test code = 2652468386) 0.98 mg/dL 0.5-1.04 CALCIUM (test code = 8042006385) 8.6 mg/dL 8.6-10.6 eGFR Calculation (Non-) (test code = 6329514603) mL/min/1.73m2 eGFR Calculation () (test code = 1876667611) mL/min/1.73m2 BUNNY (test code = BUNNY) Association of Glomerular Filtration Rate (GFR) and Staging of Kidney Disease* + -+ + ---+| GFR (mL/min/1.73 m2) ?| With Kidney Damage ?| ?Without Kidney Damage+ -------+ ------+ ---------+| ?>90 ?| ?Stage one ?| ? Normal ?+ --+ -+ ----+| ?60-89 ?| ?Stage two ?| ? Decreased GFR ? + -+ + ---+| ?30-59 ?| ?Stage three ?| ? Stage three ? + -+ + ---+| ?15-29 ?| ?Stage four ? | ? Stage four ?+ --+ -+ ----+| ?<15 (or dialysis) ? ?| ?Stage five ? | ? Stage five ?+ --+ -+ ----+ *Each stage assumes the associated GFR level has been in effect for at least three months. ?Stages 1 to 5, with or without kidney disease, indicate chronic kidney disease. Notes: Determination of stages one and two (with eGFR >59mL/min/1.73 m2) requires estimation of kidney damage for at least three months as defined by structural or functional abnormalities of the kidney, manifested by either:Pathological abnormalities or Markers of kidney damage (including abnormalities in the composition of the blood or urine or abnormalities in imaging tests). [facility] CenterLACTATE [id number] 23:01:00* Test Item Value Reference Range Interpretation Comme [facility] LDH (test code = 4591833013) 517 U/L 300-600 Lab Interpretation (test cod e = 20619-9) Normal [facility] CenterPROTHROMBIN TIME / [id number] 22:55:00* Test Item Value Reference Range Interpretation Comme [facility] PROTIME PATIENT (test code = 5964-2) See_Comment [Automated [employer]] The system which generated this result transmitted reference range: 10.1 - 12.6 Seconds. The reference range was not used to interpret this result as normal/abnormal. INR (test code = 6301-6) Normal INR <1.1; Warfarin Therapeutic range 2.0 to 3.0 or 2.5 to 3.5, depending upon the indications. Lab Interpretation (test code = 33548-4) Normal [facility] CenterCOVID-[facility] (ID NOW RAPID TESTING)2020-05-22 17:54:00* Test Item Value Reference Range Interpretation Comme [facility] SARS-CoV-2 Rapid ID NOW (test code = 62290-1) Not Detected Not Detected BUNNY (test code = BUNNY) ID NOW COVID-19 As say is an isothermal nucleic acid amplification test intended for the qualitative detection of nucleic acid from SARS-CoV-2 viral RNA in nasopharyngeal ([employer]IL[employer] PULLER) specimens. It is used under Emergency Use Authorization (EUA) by FDA. The limit of detection (LOD) of the assay is 125 Genome Equivalents/mL. A positive result is indicative of the presence of SARS-CoV-2 RNA. ?Clinical correlation with patient history and other diagnostic information is necessary to determine patient infection status. A negative (Not Detected) result does not preclude SARS-CoV-2 infection. In patients with clinical symptoms and other tests that are consistent with SARS-CoV-2 infection, negative results should be treated as presumptive negative and a new specimen should be tested with alternative PCR molecular test. Invalid: Please collect a new specimen for repeat patient testing if clinically indicated. Lab Interpretation (test code = 51310-4) Normal [facility] CenterLactic Acid Whole [id number] 17:30:00* Test Item Value Reference Range Interpretation Comme nts LACTIC ACID (test code = 6705350380) 0.79 mmol/L 0.5-2.2 Lab Interpretation (test cod e = 29616-6) Normal [facility] CenterCT ABDOMEN PELVIS W [id number] 16:49:34Acute pyelonephritis of the right kidney with early abscess formation inthe right upper pole. No current drainable fluid collections within thekidney. Mild right hydronephrosis without current ureteral stone. Suspect cystitispresent. Nonobstructing bilateral renal stones. Bandlike subpleural opacities in bilateral lower lobes, correlate for prioror late stage pneumonia such as Covid -19. RL: [id number] Patient name: SHERYL INMAN: 1965 55 years EXAMINATION: CT ABDOMEN PELVIS W CONTRAST Ordering Physician: ANTWON WHITTINGTON CLINICAL HIS TORY:Abdominal pain, fever COMPARISON:None TECHNIQUE:Helical CT images of the abdomen and pelvis were performed from the lungbases to the proximal femurs using 5 mm slice thickness after theadministration of IV contrast. Coronal and sagittal reconstruction wasperformed. Dose reduction technology was utilized.. FINDINGS:The liver is normal in size and morphology without discrete lesions. Nocalcified gallstones. The spleen is normal. No pancreatic lesions orinflammatory changes. The adrenal glands are normal. Asymmetric right perinephric stranding. Patchy areas of decreased corticalenhancement in the upper and interpolar region of the right kidney.Scattered cystic foci within these inflammatory changes in the right upperpole without drainable fluid collections. There is thickening of the rightrenal pelvis and right ureter with surrounding stranding present. At least2 stones in the right collecting system with the largest in the inferiorpole measuring 5 mm. No ureteral stone present. Urinary bladder isthickened with surrounding stranding. Nonobstructing 2 mm stone lower poleleft kidney. Simple cyst lower pole left kidney measures 12.3 cm.. Uterusand ovaries are normal for age. No hiatal hernia or esophageal thickening. No discrete gastric thickeningor surrounding inflammatory changes. The large and small bowel are normalin caliber and wall thickness. The appendix is normal. No free fluid or abscess. No adenopathy. Aorta is normal in caliber. No acute osseous abnormality. No acute process in the subcutaneous softtissues. Bandlike subpleural airspace opacities are seen bilaterally withoutconsolidation. Right subcarinal adenopathy partially visualized. No pleuraleffusion. [facility], Radiant Results Inft User - 05/22/2020 10:50 AM CSTPatient name: SHERYL INMAN: 1965 55 years EXAMINATION: CT ABDOMEN PELVIS W CONTRASTOrdering Physician: ANTWON WHITTINGTON CLINICAL HISTORY:Abdominal pain, fever COMPARISON:NoneTECHNIQUE:Helical CT images of the abdomen and pelvis were performed from the lungbases to the proximal femurs using 5 mm slice thickness after theadministration of IV contrast. Coronal and sagittal reconstruction wasperformed. Dose reduction technology was utilized. .FINDINGS:The liver is normal in size and morphology without discrete lesions. Nocalcified gallstones. The spleen is normal. No pancreatic lesions orinflammatory changes. The adrenal glands are normal.Asymmetric right perinephric stranding. Patchy areas of decreased corticalenhancement in the upperand interpolar region of the right kidney.Scattered cystic foci within these inflammatory changes in the right upperpole without drainable fluid collections. There is thickening of the rightrenal pelvis and right ureter with surrounding stranding present. At least2 stones in the right collecting system with the largest in the inferiorpole measuring 5 mm. No ureteral stone present. Urinary bladderisthickened with surrounding stranding. Nonobstructing 2 mm stone lower poleleft kidney. Simple cyst lower pole left kidney measures 12.3 cm.. Uterusand ovaries are normal for age.No hiatal hernia oresophageal thickening. No discrete gastric thickeningor surrounding inflammatory changes. The largeand small bowel are normalin caliber and wall thickness. The appendix is normal.No free fluid or abscess. No adenopathy. Aorta is normal in caliber.No acute osseous abnormality. No acute process in the subcutaneous softtissues.Bandlike subpleural airspace opacities are seen bilaterally withoutconsolidation. Right subcarinal adenopathy partially visualized. No pleuraleffusion.IMPRESSIONAcute pyelonephritis of the right kidney with early abscess formation inthe right upper pole. No current drainable fluid collections within thekidney.Mild right hydronephrosis without current ureteral stone. Suspect cystitispresent.Nonobstructing bilateral renal stones.Bandlike subpleural opacities in bilateral lower lobes, correlate for prioror late stage pneumonia such as Covid -19.RL: [id number] [facility] with [id number] 15:22:00* Test Item Value Reference Range Interpretation Comme nts WBC (test code = 6690-2) See_Comment H [[employer]] The system which generated this result transmitted reference range: 4.30 - 11.10 10*3/?L. The reference range was not used to interpret this result as normal/abnormal. RBC (test code = 789-8) See_Comment L [[employer]] The system which generated this result transmitted reference range: 3.93 - 5.25 10*6/?L. The reference range was not used to interpret this result as normal/abnormal. HGB (test code = 718-7) 8.5 g/dL 11.6-15 L HCT (test code = 4544-3) 25.7 % 35.7-45.2 L MCV (test code = 787-2) 86.2 fL 80.6-95.5 MCH (test code = 785-6) 28.5 pg 25.9-32.8 MCHC (test code = 786-4) 33.1 g/dL 31.6-35.1 RDW-SD (test code = 68293-2) 48.4 fL 39-49.9 RDW-CV (test code = 788-0) 15.3 % 12-15.5 PLT (test code = 777-3) See_Comment H [Automated messa ge] The system which generated this result transmitted reference range: 166 - 358 10*3/?L. The reference range was not used to interpret this result as normal/abnormal. MPV (test code = 18752-7) 9.6 fL 9.5-12.9 NRBC/100 WBC (test code = 1661075886) See_Comment [Automated [employer]] The system which generated this result transmitted reference range: 0.0 - 10.0 /100 WBCs. The reference range was not used to interpret this result as normal/abnormal. NRBC x10^3 (test code = 2357347441) <0.01 See_Comment [Automated messa ge] The system which generated this result transmitted reference range: 10*3/?L. The reference range was not used to interpret this result as normal/abnormal. GRAN MAT (NEUT) % (test code = 770-8) 67.2 % IMM GRAN % (test code = 1460889407) 5.90 % LYMPH % (test code = 736-9) 17.8 % MONO % (test code = 5905-5) 8.4 % EOS % (test code = 713-8) 0.3 % BASO % (test code = 706-2) 0.4 % GRAN MAT x10^3(ANC) (test code = 3784896585) 9.89 10*3/uL 1.88-7.09 H IMM GRAN x10^3 (test code = 2280608500) 0.87 10*3/uL 0-0.06 H LYMPH x10^3 (test code = 731-0) 2.61 10*3/uL 1.32-3.29 MONO x10^3 (test code = 742-7) 1.23 10*3/uL 0.33-0.92 H EOS x10^3 (test code = 711-2) 0.04 10*3/uL 0.03-0.39 BASO x10^3 (test code = 704-7) 0.06 10*3/uL 0.01-0.07 BANDS (test code = 8008911901) Increased A TOXIC CHANGES (test code = 803-7) Present A Lab Interpretation (test code = 95139-8) Abnormal [facility] CenterUrinalysis2021-02-08 15:20:00* Test Item Value Reference Range Interpretation Comme nts APPEARANCE (test code = 1687074646) Clear Clear COLOR (test code = 5835481895) Straw Yellow A PH (test code = 3863107863) 4.8-8.0 SP GRAVITY (test code = 7654452936) 1.003-1.030 GLU U QUAL (test code = 5381426246) Normal Normal BLOOD (test code = 2055928256) 2+ Negative A KETONES (test code = 7326302393) Negative Negative PROTEIN (test code = 2887-8) Negative Negative UROBILIN (test code = 3355539027) Normal Normal BILIRUBIN (test code = 2722600716) Negative Negative NITRITE (test code = 2215929017) Negative Negative LEUK TAN (test code = 5059047936) 250/uL Negative A RBC/HPF (test code = 3309117088) See_Comment [Automated [employer]] The system which generated this result transmitted reference range: 0 - 3 HPF. The reference range was not used to interpret this result as normal/abnormal. WBC/HPF (test code = 1131819932) See_Comment [Automated [employer]] The system which generated this result transmitted reference range: 0 - 5 HPF. The reference range was not used to interpret this result as normal/abnormal. BACTERIA (test code = 9506434047) Few Negative A SQ EPITH (test code = 2816040527) <1 HPF Lab Interpretation (test code = 47942-4) Abnormal [facility] CenterComplete Metabolic [id number] 14:48:00* Test Item Value Reference Range Interpretation Comme nts NA (test code = 3959293460) 137 mmol/L 135-145 K (test code = 5368435441) 3.1 mmol/L 3.5-5 L CL (test code = 5546941872) 99 mmol/L 98-108 CO2 TOTAL (test code = 3337810670) 31 mmol/L 23-31 AGAP (test code = 5380432079) 2-16 BUN (test code = 6056819699) 10 mg/dL 7-23 GLUCOSE (test code = 4679751508) 109 mg/dL 70-110 CREATININE (test code = 3381935637) 0.99 mg/dL 0.5-1.04 TOTAL BILI (test code = [id number]) 0.9 mg/dL 0.1-1.1 CALCIUM (test code = 8608717585) 8.5 mg/dL 8.6-10.6 L T PROTEIN (test code = 3486124785) 7.0 g/dL 6.3-8.2 ALBUMIN (test code = 4318970489) 3.5 g/dL 3.5-5 ALK PHOS (test code = 7280129626) 428 U/L 34-122 H ALTv (test code = 1742-6) 23 U/L 5-35 AST(SGOT) (test code = 2840763488) 29 U/L 13-40 eGFR Calculation (Non-) (test code = 8855535714) mL/min/1.73m2 eGFR Calculation () (test code = 3043682089) mL/min/1.73m2 BUNNY (test code = BUNNY) Association of Glomerular Filtration Rate (GFR) and Staging of Kidney Disease* + --+ --+ ------+| GFR (mL/min/1.73 m2) ?| With Kidney Damage ?| ?Without Kidney Damage+ --------+ --------+ +| ?>90 ?| ?Stage one ?| ? Normal ?+ ---+ ---+ -------+| ?60-89 ?| ?Stage two ?| ? Decreased GFR ? + --+ --+ ------+| ?30-59 ?| ?Stage three ?| ? Stage three ? + --+ --+ ------+| ?15-29 ?| ?Stage four ? | ? Stage four ?+ ---+ ---+ -------+| ?<15 (or dialysis) ? ?| ?Stage five ? | ? Stage five ?+ ---+ ---+ -------+ *Each stage assumes the associated GFR level has been in effect for at least three months. ?Stages 1 to 5, with or without kidney disease, indicate chronic kidney disease. Notes: Determination of stages one and two (with eGFR >59mL/min/1.73 m2) requires estimation of kidney damage for at least three months as defined by structural or functional abnormalities of the kidney, manifested by either:Pathological abnormalities or Markers of kidney damage (including abnormalities in the composition of the blood or urine or abnormalities in imaging tests). Lab Interpretation (test code = 13023-7) [id number] 14:47:00* Test Item Value Reference Range Interpretation Comme nts LIPASE (test code = 8793507231) 40 U/L 0-220 Lab Interpretation (test cod e = 35057-1) Normal [facility] [id number] 13:55:00* Test Item Value Reference Range Interpretation Comme nts POCT PREG (test code = 1605) Negative On board controls acceptable with C Line (test code = 3574) Yes POCT PREG LOT # (test code = 3575) POCT PREG TEST DATE ( test code = 3576) Lab Interpretation (test cod e = 64994-8) Normal [facility] [id number] 13:55:00* Test Item Value Reference Range Interpretation Comme nts POCT PREG (test code = 1605) Negative On board controls acceptable with C Line (test code = 3574) Yes POCT PREG LOT # (test code = 3575) POCT PREG TEST DATE ( test code = 3576) Lab Interpretation (test cod e = 37054-9) Normal [facility] [id number] 13:55:00* Test Item Value Reference Range Interpretation Comme nts POCT PREG (test code = 1605) Negative On board controls acceptable with C Line (test code = 3574) Yes POCT PREG LOT # (test code = 3575) POCT PREG TEST DATE ( test code = 3576) Lab Interpretation (test cod e = 91347-8) Normal [facility] Notes Date/Time Note Provider Source 2021-10-25 23:40:00 [facility] ([facility]) EMERGENCY PROVIDER REPORT REPORT#:[id number] REPORT STATUS: Signed DATE:10/25/21 TIME: 2339 PATIENT: SHERYL VOGEL UNIT #: [id number] ROOM/BED: AGE: 56 SEX: F PCP PHYS: DOES_NOT KNOW SERVICE AUTHOR: Douglas Metzger MD * ALL edits or amendments must be made on the electronic/computer document * HPI-Rash/Abscess/Cellulitis Free Text HPI Notes Free Text HPI Notes I agree with KILN PULLER/PA hpi. Please see below for additional history obtained by myself. 56-year-old female presents to the ER with upper lip swelling, sore formation for the last 2 days with low-grade fever of 99 last time she checked. She states been going on for 2 days she thought it was a pimple so she did squeeze it but nothing came out now the pain is penetrating into the lip going inside of her gums and also underneath her nose. She states is very tender to touch she has been using antibiotic cream with no relief. Patient states has been taking ibuprofen and Tylenol with the last dose of ibuprofen 2 to 3 hours ago. Patient reports pain currently 01/21. Patient drove herself to the ER. General Initial Greet Date/Time 10/25/211942 Provider in Triage PE General/Const No acute distress Presentation Chief Complaint Red area Review of Systems Free Text ROS Notes Free Text ROS Notes REVIEW OF SYSTEMS Constitutional: Afebrile, no malaise, no general weakness Skin: See HPI HEENT: No headache, no visual changes, no ear pain, no tinnitus, no rhinorrhea, no sore throat Endocrine: No Polyuria, No Polydipsia Cardiovascular: No chest pain, no shortness of breath, no palpitations, no lightheadedness, no leg swelling Respiratory: No cough, no dyspnea Gastrointestinal: Nondistended, no abdominal pain, no Nausea, No Vomiting, No Diarrhea Genitourinary: No hesitancy, no urgency, no dysuria, no hematuria Musculoskeletal: No joint pain, no weakness Neuro: No confusion, no weakness, no paresthesias, no seizures Past Medical History - Adult Stated Complaint SWOLLEN LIPS Allergies Coded Allergies: No Known Allergies (10/25/21) Smoking status for patients 13 years old or older: Never Smoker Physical Exam Vital Signs Vital Signs First Documented: Result Date Time Pulse Ox 98 10/26 1943 B/P 154/89 10/26 1943 B/P Mean 110.9 10/26 1943 O2 Delivery Room air 10/26 1943 Temp 36.8 10/26 1943 Pulse 91 10/26 1943 Resp 16 10/26 1943 Last Documented: Result Date Time Pulse Ox 99 10/26 0001 B/P 177/93 10/26 0001 B/P Mean 121.1 10/26 0001 O2 Delivery Room air 10/27 2339 Temp 36.8 10/27 2339 Pulse 79 10/27 2339 Resp 18 10/27 2339 Review of Vital Signs Reviewed Free Text PE Notes Free Text PE Notes Gen: A O x3, no acute distress, well-appearing Skin: Cellulitis to the upper lip, induration to the philtrum, no fluctuance HEENT: NCAT, EOM intact, TM normal bilaterally, mucous membranes moist CV: Regular rate and rhythm, normal S1, S2, no murmurs, clicks, rubs, gallops Pulm: Spontaneous respirations, no respiratory distress, no wheezing, no rales, no rhonchi Abd: Nondistended, soft, nontender, no guarding or rebound, no CVA tenderness : Deferred Interpretation Diagnostics Lab Results Interpretation Results Laboratory Tests 10/25/212048: [Embedded Image Not Available] Potassium TNP Laboratory Tests: 10/25 2048 Chemistry Sodium (137 - 145 mmol/L) 136 L Potassium (3.4 - 5.0 mmol/L) TNP Chloride (98 - 107 mmol/L) 102 Carbon Dioxide (22 - 30 mmol/L) 25 Anion Gap 14 BUN (7 - 17 mg/dL) 13 Creatinine (0.5 - 1.0 mg/dL) 0.8 Glomerular Filtr Rate (>60) 79 Glucose (74 - 106 mg/dL) 101 Calcium (8.4 - 10.2 mg/dL) 8.5 Total Bilirubin (0.2 - 1.3 mg/dL) 0.7 Conjugated Bilirubin (0 - 0.3 mg/dL) 0 Unconjugated Bilirubin (0 - 1.1 mg/dL) 0.3 AST (15 - 46 U/L) 29 ALT (0 - 34 U/L) 10 Total Alk Phosphatase (38 - 126 U/L) 103 Total Protein (6.3 - 8.2 g/dL) 7.8 Albumin (3.5 - 5.0 g/dL) 4.4 Specimen Hemolysis (0 - 100 Index/DL) 143 H Hematology WBC (5.0 - 12.0 x10 3/uL) 11.2 RBC (4.20 - 5.40 x10 6/uL) 3.74 L Hgb (12.0 - 16.0 g/dL) 10.9 L Hct (36.0 - 46.0 %) 33.1 L MCV (81 - 99 fL) 89 MCH (27 - 31 pg) 29.1 MCHC (33 - 37 g/dL) 32.9 L RDW (11.5 - 15.5 %) 12.8 Plt Count (130 - 400 x10 3/uL) 270 MPV (9.4 - 16.4 fL) 10.4 Neut % (Auto) (43 - 65 %) 71.5 H Lymph % (Auto) (20.5 - 45.5 %) 19.7 L [place] % (Auto) (5.5 - 11.7 %) 8.1 Eos % (Auto) (0.9 - 2.9 %) 0.3 L Baso % (Auto) (0.2 - 1.0 %) 0.1 L Neut # (Auto) (2.2 - 4.8 x10 3/uL) 8.04 H Lymph # (Auto) (1.3 - 2.9 x10 3/uL) 2.21 [place] # (Auto) (0.3 - 0.8 x10 3/uL) 0.91 H Eos # (Auto) (0.0 - 0.2 x10 3/uL) 0.03 Baso # (Auto) (0.0 - 0.1 x10 3/uL) 0.01 Immature Gran % (0.0 - 2.0 %) 0.3 Nucleated RBC % (0 - 1.0 %) 0.0 Microbiology: Date/Time Procedure - Status Source Growth 10/25 2048 Blood Culture - COMP BLOOD 10/25 2048 Blood Culture - COMP BLOOD Recent Impressions: CAT SCAN - CT MAXIFAC W/CONTRAST 10/25 2221 Report Impression - Status: SIGNED Entered: 10/25/20212246 IMPRESSION: 1. Dental caries with periapical disease involving the bilateral maxillary 1st premolars with adjacent cellulitis. No evidence of abscess. Impression By: StephieTH1Brunilda Wilhelm MD Re-Evaluation MDM ED Course Medication(s) Ordered Medication(s) Ordered: Anti-Infective Agents Sig/Samir Start time Last Medication Dose Route Stop Time Status Admin Ampicillin Sodium/ 3 GM X1ED STA 10/26 1947 DC 10/25 Sulbactam Sodium IV 10/25 Sodium Chloride 100 ML Central Nervous System Agents Sig/Samir Start time Last Medication Dose Route Stop Time Status Admin Ketorolac 15 MG X1ED STA 10/25 1950 DC 10/25 Tromethamine IV 10/25 Diagnostic Agents Sig/Samir Start time Last Medication Dose Route Stop Time Status Admin Iopamidol 100 ML .STK-MED ONE 10/25 2221 DC 10/25 IV 10/25 Electrolytic, Caloric, And Sadie Sig/Samir Start time Last Medication Dose Route Stop Time Status Admin Sodium Chloride 1,000 ML X1ED STA 10/25 1948 DC 10/25 IV 10/25 Serums, Toxoids, And Vaccines Sig/Samir Start time Last Medication Dose Route Stop Time Status Admin Diphtheria/Pertussis/ 0.5 ML X1ED STA 10/25 1950 DC 10/25 Tetanus Vacc IM 10/25 Patient Discharge Departure Vital Signs/Condition Vital Signs First Documented: Result Date Time Pulse Ox 98 10/26 1943 B/P 154/89 10/26 1943 B/P Mean 110.9 10/26 1943 O2 Delivery Room air 10/26 1943 Temp 36.8 10/26 1943 Pulse 91 10/26 1943 Resp 16 10/26 1943 Last Documented: Result Date Time Pulse Ox 99 10/26 0001 B/P 177/93 10/26 0001 B/P Mean 121.1 10/26 0001 O2 Delivery Room air 10/26 0001 Temp 36.8 10/26 0001 Pulse 79 10/26 0001 Resp 18 10/26 0001 All vital signs available at the time of this entry have been reviewed. Clinical Impression Clinical Impression Primary Impression: Facial cellulitis Disposition Decision Discharge )( Discharged to Home Yes )( Time 2341 )( Date 10/25/21 Discharge/Care Plan Counseled Regarding Diagnosis, Lab results, Imaging studies, Need for follow-up (Auto) Prescriptions Current Visit Scripts CLINDAMYCIN HCL (CLEOCIN) 150 MG PO Q8H CLINDAMYCIN HCL (CLEOCIN) 150 MG PO Q8H #30 CAPS MUPIROCIN (BACTROBAN 2%) 1 APPLIC TOPICAL TID MUPIROCIN (BACTROBAN 2%) 1 APPLIC TOPICAL TID #22 GM APPLY TO AFFECTED AREA. Patient Instructions Dental Abscess Facial Cellulitis, ED Cellulitis, Facial Departure Forms [facility] Discharge Note I have spoken with the patient and/or caregivers. I have explained the patient's condition, diagnoses and treatment plan based on the information available to me at this time. I have answered the patient's and/or caregiver's questions and addressed any concerns. The patient and/or caregivers have as good an understanding of the patient's diagnosis, condition and treatment plan as can be expected at this point. The vital signs have been stable. The patient's condition is stable and appropriate for discharge from the emergency department. The patient will pursue further outpatient evaluation with the primary care physician or other designated or consulting physician as outlined in the discharge instructions. The patient and/or caregivers are agreeable to this plan of care and follow-up instructions have been explained in detail. The patient and/or caregivers have received these instructions in written format and have expressed an understanding of the discharge instructions. The patient and/or caregivers are aware that any significant change in condition or worsening of symptoms should prompt an immediate return to this or the closest emergency department or a call to 911. Supervising Physician Note MidLv/Doc Saw Pt 2 The PA/KILN PULLER has seen the patient and I have performed this visit along with the involvement of the PA/KILN PULLER. I agree with the PA/pinion staker findings and plan. I have performed all aspects of MDM as documented including: evaluation of the patient/ patient's condition(s), review and analysis of available data, and determination of risk of patient management decisions. at 1655 RPT #:[id number] END OF REPORT [facility] 2021-10-25 19:48:00 [facility] ([facility]) EMERGENCY PROVIDER REPORT REPORT#:[id number] REPORT STATUS: Signed DATE:10/25/21 TIME: 1947 PATIENT: SHERYL VOGEL UNIT #: [id number] ROOM/BED: AGE: 56 SEX: F PCP PHYS: SERVICE DT: AUTHOR: Leilani Thomas NP * ALL edits or amendments must be made on the electronic/computer document * Provider in Triage - Adult Provider in Triage Initial Greet Date/Time 10/25/211942 Greet Note I have greeted and performed a focused rapid initial assessment of this patient. A comprehensive ED assessment and evaluation of the patient, analysis of all test results, and completion of the medical decision-making process will be conducted by additional ED providers. PE General/Const No acute distress MSE Not Complete The medical screening exam is not complete. Further evaluation and/or treatment is required. The patient will be re-directed to the emergency department. Free Text PIT Notes Free Text PIT Notes 56-year-old female presents to the ER with upper lip swelling, sore formation for the last 2 days with low-grade fever of 99 last time she checked. She states been going on for 2 days she thought it was a pimple so she did squeeze it but nothing came out now the pain is penetrating into the lip going inside of her gums and also underneath her nose. She states is very tender to touch she has been using antibiotic cream with no relief. Patient states has been taking ibuprofen and Tylenol with the last dose of ibuprofen 2 to 3 hours ago. Patient reports pain currently 10/10. Patient drove herself to the ER. Allergic: None PMH: Hypertension PSH: None Social: Negative Tetanus: Unknown PCP: Dr. Fraga PMH-Provider in Triage Stated Complaint SWOLLEN LIPS at 1950 RPT #:[id number] END OF REPORT [facility] 2021-10-25 19:48:00 [facility] ([facility] EMERGENCY PROVIDER REPORT REPORT#:[id number] REPORT STATUS: Signed DATE:10/25/21 TIME: 1947 PATIENT: SHERYL VOGEL UNIT #: [id number] ROOM/BED: AGE: 56 SEX: F PCP PHYS: DOES_NOT KNOW SERVICE AUTHOR: Leilani Thomas NP * ALL edits or amendments must be made on the electronic/computer document * Leilani Thomas 10/25/211947: Provider in Triage - Adult Provider in Triage Initial Greet Date/Time 10/25/211942 Greet Note I have greeted and performed a focused rapid initial assessment of this patient. A comprehensive ED assessment and evaluation of the patient, analysis of all test results, and completion of the medical decision-making process will be conducted by additional ED providers. PE General/Const No acute distress MSE Not Complete The medical screening exam is not complete. Further evaluation and/or treatment is required. The patient will be re-directed to the emergency department. Free Text PIT Notes Free Text PIT Notes 56-year-old female presents to the ER with upper lip swelling, sore formation for the last 2 days with low-grade fever of 99 last time she checked. She states been going on for 2 days she thought it was a pimple so she did squeeze it but nothing came out now the pain is penetrating into the lip going inside of her gums and also underneath her nose. She states is very tender to touch she has been using antibiotic cream with no relief. Patient states has been taking ibuprofen and Tylenol with the last dose of ibuprofen 2 to 3 hours ago. Patient reports pain currently 10/10. Patient drove herself to the ER. Allergic: None PMH: Hypertension PSH: None Social: Negative Tetanus: Unknown PCP: Dr. Fraga PMH-Provider in Triage Stated Complaint SWOLLEN LIPS Douglas Metzger 10/25/21 2339: PMH-Provider in Triage Allergies Coded Allergies: No Known Allergies (10/25/21) at 1950 at 2339 at 1017 [facility] #:[id number] END OF REPORT [facility]
--- NOTE | 2024-08-11 18:04 | ER ---
Nurse's Notes [facility] Name: Keisha Serna Age: 59 yrs Sex: Female : 1965 Arrival Date: 08/11/2024 Time: 16:07 Bed 7 [facility] MD: Diagnosis: Dental caries, unspecified Presentation: 08/11 17:15 Chief complaint: no answer when called from lobby. ED Course: 16:25 Patient arrived in ED. im 17:32 Naresh Nickerson MD is Attending Physician. bayron Administered Medications: No medications were administered Outcome: 18:11 Patient left the ED. ll1 Signatures: Naresh Nickerson MD MD cha Williams, Irene, RN RN Alexis Ramos RN RN [facility] Bárbara Munson
--- NOTE | 2024-08-11 18:05 | EDPHYS ---
Physician Documentation [facility] Name: Keisha Serna Age: 59 yrs Sex: Female : 1965 Arrival Date: 08/11/2024 Time: 16:07 Bed IW7 Private MD: ED Physician MDM: 08/11 17:32 Medical Screening Exam initiated bayron Administered Medications: No medications were administered Disposition Summary: 08/11/24 18:04 Eloped Notes: Disposition: before being seen by provider bayron Problem: new bayron Symptoms: are unchanged bayron Reason: unknown bayron Condition: Undetermined bayron Diagnosis - Dental caries, unspecified bayron Followup: bayron - With: Private Physician - When: Upon discharge from the Emergency Department - Reason: Re-evaluation by your physician Signatures: Naresh Nickerson MD MD cha
== END 2024-08-11 18:11 | disposition left against medical advice (07) ==
LOC: ER 16:07
DX: Z53.21 Procedure and treatment not carried out due to patient leaving prior to being seen by health care provider (principal)
CPT/HCPCS: 99281